=== PATIENT | female | born 1960 | race Caucasian/White ===

== ENCOUNTER 2019-04-03 23:10 | Inpatient (IN) | payer MEDICARE, OTHER ==
[~2019-04-03] VITALS: Ht 172.7 cm; Wt 49.1 kg
[2019-04-03] MEDS ORDERED: SOD CHLORIDE 0.9% 500 ML IV STA (23:55)
[2019-04-04] MEDS ORDERED: ACETAMINOPHEN 325 MG TAB PO PRN ×2 (02:30→05:30)
[2019-04-04] MEDS ORDERED: ONDANSETRON 4 MG INJ IV PRN ×3 (02:30→13:00)
[2019-04-04] MEDS ORDERED: SOD CHLORIDE 0.9% 100 ML ONE (03:14)
[2019-04-04] MEDS ORDERED: IOHEXOL 300MG/ML 150 ML BTL ONE (03:14)
[2019-04-04] MEDS ORDERED: KETOROLAC 15 MG INJ IV STA (03:20)
[2019-04-04] MEDS ORDERED: CEFTRIAXONE 1 GM/50 ML (PMX) 50 ML IVPB ONE (03:30)
--- NOTE | 2019-04-04 03:52 | ERD ---
ER Documentation Chief Complaint Chief Complaint RIGHT FACE PAIN X 2 WEEKS, WORSE TODAY. NO KNOWN FEVERS. HPI This is a 58-year-old female with a past medical history of hypertension, hyperlipidemia, coronary artery disease with a previous AR status post stenting, hypothyroidism, noncompliant on medications due to an inability to obtain them who is presenting with several months of progressive worsening weakness, fatigue, weight loss and feeling generally unwell. The patient was evaluated by her primary care physician approximately 2 weeks ago for hematuria and was diagnosed with a urinary tract infection at this time. Unfortunately, the patient was not able to fill the antibiotic prescription due to an inability to fill her medications. The patient also endorses right-sided facial pain and paresthesias, ongoing over the last several days. She does not endorse any alleviating or exacerbating factors. The patient reports that because of this pain that she has been having, she has had a decreased appetite and has not been eating very well. She feels very weak and fatigued at this time. The patient denies feeling sick recently. The patient denies fever or chills. The patient has had no headache or vision changes. The patient does not endorse neck or back pain. The patient denies lightheadedness or dizziness. The patient has had no chest pain or trouble breathing. The patient denies nausea or vomiting. The patient does endorse suprapubic abdominal pain with persistent hematuria. The patient denies changes to bowel movements. The patient has had no focal deficits. The patient has had no weakness or numbness or tingling to the face or extremities. ROS All systems reviewed and are negative except as per history of present illness. Allergies Allergies: Coded Allergies: Penicillins (Verified Allergy, Unknown, 04/03/19) PMhx/Soc History of Surgery: Yes (stent placemet) Anesthesia Reaction: No Hx Cardiac Disorders: Yes (Hypertension, hyperlipidemia, coronary artery disease with AR 2014 w/ 2 stents placed) Hx Miscellaneous Medical Probl: Yes (hypothyroid, insomnia) Hx Alcohol Use: No Hx Substance Use: No Hx Tobacco Use: No Smoking Status: Unknown if ever smoked FmHx Family History: No diabetes Physical Exam Vitals Vital Signs Date Temp Pulse Resp B/P (MAP) Pulse Ox O2 O2 Flow FiO2 Time Delivery Rate 04/04/19 70 20 123/101 98 Room Air 01:30 (108) 04/03/19 73 24 107/59 100 Room Air 23:30 (75) 04/03/19 97.3 83 20 104/67 98 23:30 (79) Physical Exam Const: No apparent distress, well-developed. Cachectic Head: Normocephalic, Atraumatic Eyes: Normal Conjunctiva. Extraocular movements intact. Pupils equal, round and reactive to light ENT: Normal External Ears, Nose. Dry mucous membranes. Normal oropharynx. Unremarkable dentition. Right tympanic membrane normal. Neck: Full range of motion. No meningismus. Resp: Clear to auscultation bilaterally, No wheezes, rales or rhonchi Cardio: Regular rate and rhythm. No murmurs, rubs or gallops Abd: Cachectic. Soft, non tender, non distended. Normal bowel sounds Skin: No petechiae or rashes Back: No midline tenderness. No CVA tenderness. Multiple moles present. Ext: No cyanosis, or edema Neur: Awake and alert, oriented 4. Cranial nerves intact. No facial droop. Normal strength, sensation and coordination. Psych: Normal Mood and Affect Result Diagram: 04/04/19 0013 04/04/19 0013 Results 24 hrs Laboratory Tests Test 04/04/19 00:00 04/04/19 00:13 04/04/19 00:15 Bedside Urine pH (LAB) 5.5 Bedside Urine Protein (LAB) 1+ Bedside Urine Glucose (UA) Negative Bedside Urine Ketones (LAB) 1+ Bedside Urine Blood Trace-intact Bedside Urine Nitrite (LAB) Positive Bedside Urine Leukocyte Esterase Negative (L White Blood Count 13.2 10^3/ul Red Blood Count 4.41 10^6/ul Hemoglobin 11.4 g/dl Hematocrit 35.6 % Mean Corpuscular Volume 80.7 fl Mean Corpuscular Hemoglobin 25.9 pg Mean Corpuscular 32.0 g/dl Hemoglobin Concent Red Cell Distribution Width 15.7 % Platelet Count 508 10^3/UL Mean Platelet Volume 9.2 fl Immature Granulocytes % 0.800 % Neutrophils % 78.4 % Lymphocytes % 12.4 % Monocytes % 6.9 % Eosinophils % 0.8 % Basophils % 0.7 % Nucleated Red Blood Cells % 0.0 /100WBC Immature Granulocytes # 0.100 10^3/ul Neutrophils # 10.4 10^3/ul Lymphocytes # 1.6 10^3/ul Monocytes # 0.9 10^3/ul Eosinophils # 0.1 10^3/ul Basophils # 0.1 10^3/ul Nucleated Red Blood Cells # 0.0 10^3/ul Prothrombin Time 12.9 Sec Prothrombin Time Ratio 1.0 INR International Normalized Ratio 0.96 Sodium Level 137 mmol/L Potassium Level 3.5 mmol/L Chloride Level 103 mmol/L Carbon Dioxide Level 25 mmol/L Anion Gap 9 Blood Urea Nitrogen 28 mg/dl Creatinine 1.18 mg/dl Est Glomerular Filtrat Rate mL/min 47 mL/min Glucose Level 111 mg/dl Calcium Level 9.8 mg/dl Troponin I < 0.012 ng/ml B-Type Natriuretic Peptide 366 PG/ML Thyroid Stimulating Hormone (TSH) 16.400 MIU/L Free Thyroxine 2.19 ng/dl Bedside Glucose 110 mg/dL Current Medications Medications Dose Sig/Juan Daniel Start Time Status Last (Trade) Ordered Route PRN Stop Time Admin Dose Reason Admin Sodium 500 ml @ Q1H STAT 04/03/19 DC 04/04/19 Chloride 500 mls/hr IV 23:55 00:41 04/04/19 00:54 Ondansetron 4 mg BRIDGE ORDER 04/04/19 HCl (Zofran PRN IV 02:30 Inj) NAUSEA/VOMITI 04/05/19 02:29 NG 650 mg ER BRIDGE 04/04/19 Acetaminophen PRN PO 02:30 (Tylenol .MILD PAIN 04/05/19 02:29 Tab) 1-3 OR TEMP Sodium 100 ml @ ud STK-MED 04/04/19 DC Chloride ONCE .ROUTE 03:14 04/04/19 03:15 Iohexol 150 ml STK-MED 04/04/19 DC (Omnipaque ONCE .ROUTE 03:14 300mg/ ml) 04/04/19 03:15 Ceftriaxone 50 ml @ ONCE ONCE 04/04/19 04/04/19 Sodium 100 mls/hr IVPB 03:30 03:25 04/04/19 03:59 Ketorolac 15 mg ONCE STAT 04/04/19 DC 04/04/19 Tromethamine IV 03:20 03:25 (Toradol) 04/04/19 03:22 Procedures/MDM MDM The patient's presentation warrants further investigation. Previous medical records, if available, were reviewed. LABS The patient's laboratory testing was obtained and reviewed. No emergent treatment was required unless described below. CBC: Leukocytosis with shift, potentially related to an infection. Thrombocytosis, likely reactive. Normocytic anemia, not emergent. Chemistry: No E/o severe acidosis or alkalosis or liver disease or diabetic ketoacidosis. Elevated BUN and creatinine, concerning for possible dehydration and acute kidney injury. PT/INR: No E/o significant coagulopathy Troponin: No E/o acute ischemia BNP: Indeterminate, low clinical suspicion for a heart failure exacerbation. Urine: E/o acute infection with hematuria TFTs: Hypothyroidism EKG EKG read by me: Rate/Rhythm: Regular rate and rhythm at a rate of 71 bpm Intervals: Normal [place]: Normal Impression: No evidence of acute ischemia or arrhythmia IMAGING Imaging and Radiology interpretation reviewed. CXR FINDINGS: A 3.5 cm nodular lesion projects at the base of the left lung. An adjacent 10 mm opacity may represent a satellite nodule or nipple shadow. There is linear atelectasis or scarring in the right lung base. No evidence of an effusion or pneumothorax. Cardiac silhouette and mediastinal contours are unremarkable. Regional bones appear intact. IMPRESSION: 1. Nodular 3.5 cm opacity projecting within left lung base raises suspicion for primary neoplasm versus metastatic disease. No previous exams available for comparison. If not previously evaluated, further characterization with CT is recommended. 2. Linear atelectasis or scarring in the right lung base. Results called to Dr. Dowd at 2:45 am on 04/04/2019. Electronically viewed and signed by Physician Trent on 04/04/2019 02: 48 CT Head FINDINGS: Brain: There is appropriate cerebral and cerebellar volume. No evidence of intracranial hemorrhage, mass effect or extra-axial fluid collections. There is nonspecific left frontal white matter hypodensity measuring less than 10 mm. Phelps-white distinction is well preserved throughout the exam. Skull base: The bony sella, pituitary gland and infundibulum unremarkable. Posterior fossa and cerebellum unremarkable. Visualized portions of the external auditory canals and tympanic cavity are within normal limits. Ventricles: Appropriate size and position Bones/Scalp: Unremarkable scalp. No evidence of skull fracture Sinuses: Well pneumatized. No acute sinusitis. Mastoid air cells: There is partial opacification, and sclerosis of the right mastoid. IMPRESSION: Nonspecific left frontal white matter hypodensity, likely chronic ischemic change. Right mastoid effusion. Electronically viewed and signed by Destiny Suggs, Physician on 04/04/2019 02:50 TREATMENT/DISPOSITION The patient presents for multiple complaints. Multiple pathologies were d iscovered. The patient is hypothyroid. The patient's TSH is significantly elevated, though the free T4 is within normal limits. That said, this could be contributing to her symptoms today. The patient will require reinitiation of her thyroid medications. The patient also appears to have a left lower lobe nodular opacity that is concerning for a possible primary neoplasm versus metastatic disease. A CT was recommended by the radiologist. This was ordered and will be followed up on by the admitting service. This could help to explain her generalized weakness, fatigue and significant weight loss over the last several months. The patient does also have evidence of a urinary tract infection. The patient does have a mild leukocytosis, but her vital signs are unremarkable. The patient does not meet criteria for systemic inflammatory response. The patient is not septic and I do not feel the patient requires a full septic work-up. The patient was given a dose of Rocephin in the emergency department. The patient is not clinically orthostatic. The patient is not dizzy. I have decr eased suspicion for vertigo. The patient has no signs of emergent or symptomatic anemia. The patient does not have any emergent electrolyte or metabolic emergencies. The patient's EKG and troponin are reassuring. I have low suspicion for acute coronary syndrome. I do not see evidence of any emergent cardiac arrhythmia, which includes but is not limited to heart block, Brugada syndrome or WPW. The patient has no heart murmurs or rales. I do not see evidence of an acute CHF exacerbation. The patient may have chronic CHF given her history, which is why she has a mildly elevated BNP in an indeterminate range.. The patient does not endorse any chest or pleuritic pain. The history is negative for bleeding or clotting disorders. The patient has not been involved in any recent prolonged trips or surgeries or hospitalizations. The patient has no calf tenderness or swelling. I have decreased suspicion for PE as the etiology of symptoms. The patient has no focal deficits. The neurologic exam is reassuring. I have decreased suspicion for cerebral ischemia. There was no trauma or injury. There is no personal or family history of cerebral aneurysm. I have decreased suspicion for SAH or other ICH. I have low suspicion for temporal arteritis, cavernous venous thrombosis, subdural hematoma, epidural hematoma, meningitis. The patient does also report right-sided facial pain. There is no facial droop. As stated above, I do not suspect cerebral ischemia or intracranial hemorrhage. I do not suspect a central neurologic pathology. I do not see evidence of Carl's palsy. The patient does not have symptoms concerning for herpes zoster or trigeminal neuralgia. I do not see any evidence of cellulitis or other soft tissue infection. I do not see evidence of a dental infection. I do not see evidence of otitis media. I do not see evidence of emergent pathology, this may be evaluated further in the hospital. ADMISSION At this time, I feel that the patient requires admission for further evaluation and management. The patient will be admitted to panel in accordance with the patient's insurance. The patient was accepted by Dr. Mathew at 2:19 AM on April 04, 2019. Disclaimer: Inadvertent spelling and grammatical errors are likely due to EHR/dictation software use and do not reflect on the overall quality of patient care. Note that the electronic time recorded on this note does not necessarily reflect the actual time of the patient encounter. Departure Diagnosis: Primary Impression: Generalized weakness Additional Impressions: Hypothyroidism Hypothyroidism type: unspecified Qualified Codes: E03.9 - Hypothyroidism, unspecified Urinary tract infection Urinary tract infection type: acute cystitis Hematuria presence: with hematuria Qualified Codes: N30.01 - Acute cystitis with hematuria Left lower lobe pulmonary nodule Leukocytosis Leukocytosis type: unspecified Qualified Codes: D72.829 - Elevated white blood cell count, unspecified Normocytic anemia Thrombocytosis Dehydration Acute kidney injury Elevated TSH Elevated brain natriuretic peptide (BNP) level Right facial pain Condition: Serious ARIA DOWD MD April 04, 2019 03:47
[2019-04-04 04:08] VITALS: Ht 172.7 cm; Wt 49.1 kg
[2019-04-04 04:28] VITALS: BP 122/69; PULSE 80; RESP 18
[2019-04-04] MEDS ORDERED: ALBUTEROL/IPRATROPIUM (NEB) 3 ML AMP HHN PRN (05:30)
[2019-04-04] MEDS ORDERED: NACL 0.9% 3 ML SYG IV SCH (05:30)
[2019-04-04] MEDS ORDERED: AMPICILLIN/SULB 3 GM/NS (PMX) 100 ML IVPB SCH (06:00)
--- NOTE | 2019-04-04 06:53 | HP ---
Date/Time of Note Date/Time of Note DATE: 04/04/19 TIME: 06:45 Assessment/Plan VTE Prophylaxis Risk score (from Ns)>0 risk: 1 SCD applied (from Ns): Yes Pharmacological prophylaxis: heparin Lines/Catheters IV [facility]ter [facility]from [facility] [place] Assessment/Plan Assessment/Plan 1. Lung nodule, concerning for malignancy: Patient reported weight loss and general weakness -CT chest, abdomen and pelvis -Pulmonary and oncology consult 2. Right facial numbness/pain: No focal upper or lower extremity weakness, no slurred speech. She mentioned about possible facial droop few days ago, but not sure -Head CT negative for acute intracranial findings except right mastoid effusion -MRI of the brain 3. Right mastoid effusion: IV antibiotic -ENT consult per clinical course 4. Subclinical hypothyroidism: Patient actually with a history of hypothyroidism and noncompliant with meds -Start Synthroid -Endocrine consult 5. History of CAD with stent: Patient noncompliant with meds -No aspirin for now given possible biopsy of the lung mass 6. History of dyslipidemia: Check fasting lipid panel Result Diagram: 04/04/19 0013 04/04/19 0013 Results 24hrs Laboratory Tests Test 04/04/19 00:00 04/04/19 00:13 04/04/19 00:15 Bedside Urine pH (LAB) 5.5 Bedside Urine Protein (LAB) 1+ H Bedside Urine Glucose (UA) Negative Bedside Urine Ketones (LAB) 1+ H Bedside Urine Blood Trace-intact H Bedside Urine Nitrite (LAB) Positive H Bedside Urine Leukocyte Esterase Negative (L White Blood Count 13.2 H Red Blood Count 4.41 Hemoglobin 11.4 L Hematocrit 35.6 L Mean Corpuscular Volume 80.7 L Mean Corpuscular Hemoglobin 25.9 L Mean Corpuscular 32.0 Hemoglobin Concent Red Cell Distribution Width 15.7 H Platelet Count 508 H Mean Platelet Volume 9.2 Immature Granulocytes % 0.800 H Neutrophils % 78.4 H Lymphocytes % 12.4 L Monocytes % 6.9 Eosinophils % 0.8 Basophils % 0.7 Nucleated Red Blood Cells % 0.0 Immature Granulocytes # 0.100 H Neutrophils # 10.4 H Lymphocytes # 1.6 Monocytes # 0.9 Eosinophils # 0.1 Basophils # 0.1 Nucleated Red Blood Cells # 0.0 Prothrombin Time 12.9 Prothrombin Time Ratio 1.0 INR International 0.96 Normalized Ratio Sodium Level 137 Potassium Level 3.5 Chloride Level 103 Carbon Dioxide Level 25 Anion Gap 9 Blood Urea Nitrogen 28 H Creatinine 1.18 H Est Glomerular Filtrat 47 L Rate mL/min Glucose Level 111 Calcium Level 9.8 Troponin I < 0.012 B-Type Natriuretic Peptide 366 H Thyroid Stimulating Hormone (TSH) 16.400 H Free Thyroxine 2.19 Bedside Glucose 110 HPI/ROS Admit Date/Time Admit Date/Time April 04, 2019 at 02:21 Hx of Present Illness This is a 58-year-old female with a history of hypertension, hypothyroidism, anxiety, dyslipidemia, CAD with stent, noncompliance. Patient presented to ER complaining of right facial pain and tingling x1 week as well as weight loss and generalized weakness and shortness of breath of several months duration. Patient also had hematuria 2 weeks ago and was diagnosed with a UTI by her PCP. Denied chest pain. Patient has not been taking any of her medications for over a month, per patient due to insurance reason. Chest x-ray shows the following 1. Nodular 3.5 cm opacity projecting within left lung base raises suspicion for primary neoplasm versus metastatic disease. No previous exams available for comparison. If not previously evaluated, further characterization with CT is recommended. 2. Linear atelectasis or scarring in the right lung base. Head CT showed right mastoid effusion and nonspecific left frontal white matter hypodensity, likely chronic ischemic change. PMH/Family/Social Past Medical History Medical History: other (See HPI) Coded Allergies: Penicillins (Verified Allergy, Unknown, rash, 09/06/17) Past Surgical History Past Surgical Hx: other (See HPI) Family History Significant Family History: no pertinent family hx Social History Alcohol Use: none Smoking Status: Never smoker Drug Use: none Exam Constitutional: other (No acute distress) Head: normocephalic Eyes: PERRL Respiratory: normal air movement Cardiovascular: regular rate and rhythm Gastrointestinal: soft Extremities: edema Medications Current Medications IV Flush (NS 3 ml) 3 ml PER PROTOCOL IV ; Start 04/04/19 at 05:30 Ondansetron HCl (Zofran Inj) 4 mg Q6H PRN IV NAUSEA/VOMITING; Start 04/04/19 at 05:30 Acetaminophen (Tylenol Tab) 650 mg Q6H PRN PO .PAIN 1-3 OR TEMP; Start 04/04/19 at 05:30 Heparin Sodium (Porcine) (Heparin (5000 Units/1ml)) 5,000 unit Q12 SC ; Start 04/04/19 at 09:00 Albuterol/ Ipratropium (Duoneb) 3 ml Q2H RESP THERAPY PRN HHN SHORTNESS OF BREATH; Start 04/04/19 at 05:30 Ampicillin Sodium/ Sulbactam Sodium 100 ml @ 100 mls/hr Q6 IVPB ; Start 04/04/19 at 06:00; Status UNV Coded Allergies: Penicillins (Verified Allergy, Unknown, 04/03/19) Social History Smoking Status: Unknown if ever smoked Exam/Review of Systems Vital Signs Vitals Vital Signs Date Temp Pulse Resp B/P (MAP) Pulse Ox O2 O2 Flow FiO2 Time Delivery Rate 04/04/19 97.7 80 18 122/69 100 04:28 (86) 04/04/19 Room Air 03:30 Intake and Output 04/03/19 04/03/19 04/04/19 1515:00 23:00 07:00 IntakeIntake Total 550 ml BalanceBalance 550 ml MERLE MENDOZA MD April 04, 2019 06:53
[2019-04-04 07:36] VITALS: BP 164/70; PULSE 68; RESP 16
[2019-04-04] MEDS: LEVOTHYROXINE 50 MCG TAB PO SCH (08:41)
[2019-04-04] MEDS: LEVOFLOXACIN 500MG/D5W (PMX) 100 ML IVPB SCH (08:41)
[2019-04-04] MEDS: HEPARIN 5,000 UNIT/1 ML VIAL SC SCH ×2 (08:45→21:00)
[2019-04-04 10:44] VITALS: BP 152/67; PULSE 66
[2019-04-04] MEDS ORDERED: morphine 2 MG INJ IV STA (11:59)
[2019-04-04] MEDS ORDERED: METOCLOPRAMIDE 10 MG INJ IV ONE (12:00)
--- NOTE | 2019-04-04 13:00 | EN ---
Date/Time of Note Date/Time of Note DATE: 04/04/19 TIME: 12:59 Event Note Medicine Medicine Event Note 58-year-old female who was admitted earlier today because of numbness and pain on the right side of her face. She does have past medical history of hypertension, dyslipidemia, coronary artery disease with previous SD status post PCI, hypothyroidism and has been noncompliant with her medications. Patient also reported recent diagnosis of a urinary tract infection but never got treated. Because she never picked up her medications. She was admitted for the followin. Lung nodule concerning for malignancy 2. Headaches with right-sided facial numbness and pain 3. Right mastoid effusion 4. Hypothyroidism with suboptimal control due to medication noncompliance 5. History of coronary disease status post PCI with noncompliance 6. History of dyslipidemia 7. Hypertension currently with fair control 8. Hypochromic anemia rule out iron deficiency 9. Acute renal insufficiency rule out chronic kidney disease Plan: -CT shows multiple bilateral lung nodules with a dominant mass in the left lower lobe all concerning for metastasis. Will order marrow biopsy as well as pulmonology and oncology consultations -Follow-up MRI of the brain imaging to rule out brain metastasis contributing to his symptoms -CT of the abdomen and pelvis also ordered to further evaluate nodules -Provide supportive care and pain control -Further interventions per clinical course. JAYLON CASTELAN April 04, 2019 13:00
[2019-04-04 15:23] VITALS: BP 113/56; PULSE 73; RESP 14
[2019-04-04 20:00] VITALS: BP 140/72; PULSE 66; RESP 17
[2019-04-04] MEDS: traZODone 50 MG TAB PO SCH (22:24)
[2019-04-05 02:00] VITALS: BP 132/67; PULSE 60; RESP 18
[2019-04-05] MEDS: LEVOTHYROXINE 50 MCG TAB PO SCH (06:08)
[2019-04-05 07:56] VITALS: BP 133/67; PULSE 92; RESP 16
[2019-04-05] MEDS: LEVOFLOXACIN 500MG/D5W (PMX) 100 ML IVPB SCH (08:48)
[2019-04-05] MEDS: morphine 2 MG INJ IV PRN ×3 (09:55→21:29)
--- NOTE | 2019-04-05 10:53 | CONS ---
Assessment/Plan Assessment/Plan Assessment/Plan (Daily) CT chest was reviewed which is showing large mass in the left lower lobe with a small mass in the right lower lobe as well. Liver imaging shows multiple lesions which are consistent with primary malignancy of liver with likely metastatic disease to lungs. There are also groundglass changes in the lung parenchyma bilaterally. Assessment recommendations; 1. Patient admitted with what appears to be advanced malignancy with hepatic and [place] involvement with right facial numbness possibly indicative of cerebral malignant involvement. Continue current supportive care. Patient scheduled for MRI of the brain. The safest way to diagnose would be to perform liver biopsy. Consultation Date/Type/Reason Admit Date/Time April 04, 2019 at 02:21 Date of Consultation: April 05, 2019 Type of Consult Pulmonary Patient is a 58-year-old lady who came into the hospital with right facial numbness. Upon evaluation CT of the head was done which is essentially unremarkable. However x-ray showing left lower lobe lung mass confirmed by CT imaging of the chest showing bilateral pulmonary masses with extensive hepatic lesions which are consistent with malignancy. Patient also been reporting weight loss over the last few weeks. Past medical history; 1. History of pulmonary hypertension 2. CAD status post PTCA in the past. 3. History of hypothyroidism. 4. Possibly COPD. Medications; reviewed. Allergies; penicillin. Social history; prior history of smoking. Family history; noncontributory. Occupational history; noncontributory. Review of systems; denies any headache, seizures. Any visual changes. Denies any dysphagia, chest pain, complains of scant cough without any hemoptysis. Denies any wheezing. Denies any abdominal pain, nausea vomiting melena or hematochezia. Patient did have recent episode of UTI. Complains of weight loss. Denies any skin lesions or any joint symptoms. General exam; elderly woman, awake alert, currently no distress. Date/Time of Note DATE: 04/05/19 TIME: 10:49 Past Medical History Medications Current Medications IV Flush (NS 3 ml) 3 ml PER PROTOCOL IV ; Start 04/04/19 at 05:30 Acetaminophen (Tylenol Tab) 650 mg Q6H PRN PO .PAIN 1-3 OR TEMP Last administered on 04/04/19at 10:24; Admin Dose 650 MG; Start 04/04/19 at 05:30 Heparin Sodium (Porcine) (Heparin (5000 Units/1ml)) 5,000 unit Q12 SC Last administered on 04/04/19at 08:45; Admin Dose 5,000 UNIT; Start 04/04/19 at 09:00 Albuterol/ Ipratropium (Duoneb) 3 ml Q2H RESP THERAPY PRN HHN SHORTNESS OF BREATH; Start 04/04/19 at 05:30 Levothyroxine Sodium (Synthroid) 50 mcg DAILY@06 PO Last administered on 04/05/19at 06:08; Admin Dose 50 MCG; Start 04/04/19 at 08:30 Levofloxacin/ Dextrose 100 ml @ 100 mls/hr Q24H IVPB Last administered on 04/05/19 08:48; Admin Dose 100 MLS/HR; Start 04/04/19 at 08:30 Morphine Sulfate (morphine) 2 mg Q4H PRN IV SEVERE PAIN LEVEL 7-10 Last administered on 04/05/19 09:55; Admin Dose 2 MG; Start 04/04/19 at 13:00 Ondansetron HCl (Zofran Inj) 4 mg Q6H PRN IV NAUSEA AND/OR VOMITING; Start 04/04/19 at 13:00 Trazodone HCl (Desyrel) 25 mg HS PO Last administered on 04/04/19at 22:24; Admin Dose 25 MG; Start 04/04/19 at 22:30 Allergies: Coded Allergies: Penicillins (Verified Allergy, Unknown, 04/03/19) Social History Smoking Status: Unknown if ever smoked Exam/Review of Systems Exam Vitals Vital Signs Date Temp Pulse Resp B/P (MAP) Pulse Ox O2 O2 Flow FiO2 Time Delivery Rate 04/05/19 98.7 92 16 133/67 99 07:56 (89) 04/04/19 Room Air 03:30 Intake and Output 04/04/19 04/04/19 04/05/19 1515:00 23:00 07:00 IntakeIntake Total 1020 ml 840 ml OutputOutput Total 350 ml 450 ml 900 ml BalanceBalance 670 ml 390 ml -900 ml Exam H EENT exam; supple neck, no JVD. No lymphadenopathy. Midline trachea. No thyromegaly. No neck masses. Chest exam; clear to auscultation. S1-S2 audible, no murmurs. Regular rhythm. Abdomen exam; soft, nontender. No organomegaly. Bowel sounds audible. Extremity exam; no peripheral edema or clubbing. R[employer] exam; no focal motor deficit. Results Result Diagram: 04/05/19 0454 04/05/19 0454 Results 24hrs Laboratory Tests Test 04/05/19 04:51 04/05/19 04:54 Carcinoembryonic Antigen 346.0 H White Blood Count 10.7 Red Blood Count 4.18 L Hemoglobin 10.9 L Hematocrit 34.3 L Mean Corpuscular Volume 82.1 Mean Corpuscular Hemoglobin 26.1 L Mean Corpuscular Hemoglobin Concent 31.8 L Red Cell Distribution Width 16.1 H Platelet Count 422 H Mean Platelet Volume 9.7 Immature Granulocytes % 0.700 H Neutrophils % 73.8 Lymphocytes % 14.9 L Monocytes % 8.2 Eosinophils % 1.7 Basophils % 0.7 Nucleated Red Blood Cells % 0.0 Immature Granulocytes # 0.080 H Neutrophils # 7.9 H Lymphocytes # 1.6 Monocytes # 0.9 Eosinophils # 0.2 Basophils # 0.1 Nucleated Red Blood Cells # 0.0 Prothrombin Time 13.3 Prothrombin Time Ratio 1.0 INR International Normalized Ratio 1.00 Activated Partial Thromboplast Time 38.5 H Sodium Level 137 Potassium Level 3.9 Chloride Level 105 Carbon Dioxide Level 27 Anion Gap 5 Blood Urea Nitrogen 14 # Creatinine 0.77 Est Glomerular Filtrat Rate mL/min > 60 Glucose Level 101 Hemoglobin A1c 5.4 Calcium Level 9.0 Phosphorus Level 3.0 Magnesium Level 2.0 Total Bilirubin 0.2 Direct Bilirubin 0.00 Indirect Bilirubin 0.2 Aspartate Amino Transf (AST/SGOT) 55 H Alanine Aminotransferase (ALT/SGPT) 14 Alkaline Phosphatase 217 H Total Protein 6.3 Albumin 3.4 Globulin 2.90 Albumin/Globulin Ratio 1.17 Triglycerides Level 178 H Cholesterol Level 188 LDL Cholesterol, Calculated 104 HDL Cholesterol 48 Cholesterol/HDL Ratio 3.9 Medications Medication Current Medications IV Flush (NS 3 ml) 3 ml PER PROTOCOL IV ; Start 04/04/19 at 05:30 Acetaminophen (Tylenol Tab) 650 mg Q6H PRN PO .PAIN 1-3 OR TEMP Last administered on 04/04/19at 10:24; Admin Dose 650 MG; Start 04/04/19 at 05:30 Heparin Sodium (Porcine) (Heparin (5000 Units/1ml)) 5,000 unit Q12 SC Last administered on 04/04/19 08:45; Admin Dose 5,000 UNIT; Start 04/04/19 at 09:00 Albuterol/ Ipratropium (Duoneb) 3 ml Q2H RESP THERAPY PRN HHN SHORTNESS OF BREATH; Start 04/04/19 at 05:30 Levothyroxine Sodium (Synthroid) 50 mcg DAILY@06 PO Last administered on 04/05/19 06:08; Admin Dose 50 MCG; Start 04/04/19 at 08:30 Levofloxacin/ Dextrose 100 ml @ 100 mls/hr Q24H IVPB Last administered on 04/05/19 08:48; Admin Dose 100 MLS/HR; Start 04/04/19 at 08:30 Morphine Sulfate (morphine) 2 mg Q4H PRN IV SEVERE PAIN LEVEL 7-10 Last administered on 04/05/19at 09:55; Admin Dose 2 MG; Start 04/04/19 at 13:00 Ondansetron HCl (Zofran Inj) 4 mg Q6H PRN IV NAUSEA AND/OR VOMITING; Start 04/04/19 at 13:00 Trazodone HCl (Desyrel) 25 mg HS PO Last administered on 04/04/19at 22:24; Admin Dose 25 MG; Start 04/04/19 at 22:30 DONATO PAEZ April 05, 2019 10:53
[2019-04-05] MEDS: HEPARIN 5,000 UNIT/1 ML VIAL SC SCH (12:58)
--- NOTE | 2019-04-05 14:35 | DS ---
Date/Time of Note Date/Time of Note DATE: 04/05/19 TIME: 14:26 Discharge Summary Admission/Discharge Info Admit Date/Time April 04, 2019 at 02:21 Discharge Date/Time Discharge Diagnosis 58-year-old female with multiple comorbidities and off medications for a while who presented with right-sided facial numbness and headaches admitted and managed for the followin. Headaches with right-sided facial numbness and pain concerning for cerebral malignant disease 2. CT concern for extensive metastases metastatic possible rectal cancer. Nodules concerning for metastasis noted in the lungs bilaterally, and the liver and concerning mass noted in the rectum concerning for possible primary rectal cancer. 3. Right mastoid effusion 4. Hypothyroidism with suboptimal control due to medication noncompliance 5. History of coronary disease status post PCI with noncompliance 6. History of dyslipidemia 7. Hypertension currently with fair control 8. Hypochromic anemia rule out iron deficiency 9. Acute renal insufficiency rule out chronic kidney disease: resolved . Patient Condition: Stable Consults Pulmonary: Barber Barrientos MD Oncology: Annie Vazquez MD . Procedures See hospital course . Hospital Course Transfer summary 58-year-old female with a past medical history of hypertension, hypothyroidism, anxiety, dyslipidemia, coronary artery disease status post stent placement and noncompliance to therapy who had presented to the emergency room complaining of right-sided facial pain and tingling for the last 1 week with weight loss, generalized weakness, headaches and shortness of breath. Per the patient she had recently had a hematuria 2 weeks ago was diagnosed with a UTI by her primary care doctor. For insurance reasons, the patient has been off any kind of medication for over a month. A chest x-ray that was done in the emergency room was concerning for a nodule at 3.5 cm opacity from the left lung base that was consented for primary neoplasm versus metastatic disease based on this, a CT scan of the chest was ordered but prior to that she underwent a CT scan of the brain that showed nonspecific left frontal white matter hypodensity likely chronic ischemic changes and right mastoid effusion. Chest CT that was ordered without contrast also of the abdomen and pelvis showed concern for primary rectal carcinoma with lung and liver metastasis. The left lower lobe dominant lung mass as well as several liver masses are amenable to CT-guided biopsy if indicated. She also had a CT of the chest with intravenous contrast that did show same dominant mass in the left lower lobe lobe which I suspect suspicious of metastatic lesions as well as partially imaged extensive hepatic metastatic disease. Patient also has a known history of hypothyroidism but has been noncompliant with her medication and she underwent a screening thyroid ultrasound that also came back showing asymmetrically enlarged right thyroid lobe with multiple ill- defined thyroid nodules likely representing a unilateral goiter. Per the radiologist none of the nodules meet ultrasound criteria for biopsy. She was resumed on low-dose Synthroid and has been tolerating this therapy. Screening labs including carcinoembryonic antigen was elevated at 346, her TSH was elevated at 16 and a urine was highly suspicious of a urinary tract infection and also positive for yeast as well. At this time the patient has been seen by both oncology as well as pulmonology. patient's original presenting complaint was right facial numbness and this is concerning for possible cerebral malignant involvement. At this time brain MRI has been taken by report is pending. As patient is a [facility] member, it may be better off if her further work-up is done at that location. The patient needs possible neurology as well as gastroenterology intervention at this time as well. She does complain of intermittent constipation alternating with diarrhea. She has been requiring the use of stool softeners on and off. At this time the insurance case manager will attempt to reach [facility] and initiate [facility]. If patient is transferred for further care will be taken over by them. If not, we will go ahead and get gastroenterology consultation at this time a follow-up MRI of the brain. Further intervention per clinical course. Primary Care Provider Care Physician No Primary Time spent on discharge: > 30 minutes Pending Labs Laboratory Tests Test 04/05/19 04:51 04/05/19 04:54 Carcinoembryonic Antigen 346.0 ng/ml (0.0-5.0) White Blood Count 10.7 10^3/ul (4.8-10.8) Red Blood Count 4.18 10^6/ul (4.20-5.40) Hemoglobin 10.9 g/dl (12.0-16.0) Hematocrit 34.3 % (37.0-47.0) Mean Corpuscular Volume 82.1 fl (82.0-101.0) Mean Corpuscular Hemoglobin 26.1 pg (29.0-33.0) Mean Corpuscular 31.8 g/dl (32.0-37.0) Hemoglobin Concent Red Cell Distribution Width 16.1 % (11.5-14.5) Platelet Count 422 10^3/UL (140-415) Mean Platelet Volume 9.7 fl (7.4-10.4) Immature Granulocytes % 0.700 % (0.001-0.429) Neutrophils % 73.8 % (39.0-77.0) Lymphocytes % 14.9 % (15.0-51.0) Monocytes % 8.2 % (0.0-11.0) Eosinophils % 1.7 % (0.0-7.0) Basophils % 0.7 % (0.0-2.0) Nucleated Red Blood Cells % 0.0 /100WBC (0.0-0.0) Immature Granulocytes # 0.080 10^3/ul (0.0-0.031) Neutrophils # 7.9 10^3/ul (1.6-7.5) Lymphocytes # 1.6 10^3/ul (0.8-2.9) Monocytes # 0.9 10^3/ul (0.3-0.9) Eosinophils # 0.2 10^3/ul (0.0-0.5) Basophils # 0.1 10^3/ul (0.0-0.1) Nucleated Red Blood Cells # 0.0 10^3/ul (0.0-0.0) Prothrombin Time 13.3 Sec (11.9-14.9) Prothrombin Time Ratio 1.0 INR International 1.00 Normalized Ratio Activated Partial Thromboplast 38.5 Sec (23.0-35.0) Time Sodium Level 137 mmol/L (135-144) Potassium Level 3.9 mmol/L (3.5-5.1) Chloride Level 105 mmol/L (97-110) Carbon Dioxide Level 27 mmol/L (21-31) Anion Gap 5 (5-13) Blood Urea Nitrogen 14 mg/dl (7-20) Creatinine 0.77 mg/dl (0.44-1.00) Est Glomerular Filtrat > 60 mL/min (>60) Rate mL/min Glucose Level 101 mg/dl (70-220) Hemoglobin A1c 5.4 % (0-5.9) Calcium Level 9.0 mg/dl (8.4-10.2) Phosphorus Level 3.0 mg/dl (2.5-4.9) Magnesium Level 2.0 mg/dl (1.7-2.5) Total Bilirubin 0.2 mg/dl (0.2-1.3) Direct Bilirubin 0.00 mg/dl (0.00-0.20) Indirect Bilirubin 0.2 mg/dl (0-1.1) Aspartate Amino 55 IU/L (15-46) Transf (AST/SGOT) Alanine 14 IU/L (13-69) Aminotransferase (ALT/SGPT) Alkaline Phosphatase 217 IU/L (42-121) Total Protein 6.3 g/dl (6.1-8.1) Albumin 3.4 g/dl (3.3-4.9) Globulin 2.90 g/dl (1.3-3.2) Albumin/Globulin Ratio 1.17 Triglycerides Level 178 mg/dl (0-149) Cholesterol Level 188 mg/dl (100-200) LDL Cholesterol, Calculated 104 mg/dl HDL Cholesterol 48 mg/dl (35-98) Cholesterol/HDL Ratio 3.9 RATIO JAYLON CASTELAN April 05, 2019 14:35
[2019-04-05 14:50] VITALS: BP 106/65; PULSE 98; RESP 16
--- NOTE | 2019-04-05 15:32 | CONS ---
Assessment/Plan Assessment/Plan Hospital Course 58 yo F with multiple comorbidities who presents for evaluation of weight loss, malaise, and other sx. CT C/A/P was notable for lung and liver nodules, likely metastatic lesions. She additionally was noted to have c/o headache and R facial tingling... for which neurology is consulted. MRI brain confirmed a mass centered in the right posterior pterygopalatine fossa concerning for metastasis. P: Oncology follow up Seizure precautions Pain and other medical management per primary Will follow clinically Consultation Date/Type/Reason Admit Date/Time April 04, 2019 at 02:21 Type of Consult Neurology Reason for Consultation headache, R facial paresthesias Requesting Provider: JAYLON CASTELAN Date/Time of Note DATE: 04/05/19 TIME: 15:32 Hx of Present Illness 58 yo F with hx of [place] s/p multiple stent placement, hypothyroidism and other comorbidities who presented to the ED with c/o weight loss and generalized weakness x 1 1/2 mo, and headache with R facial tingling x 1 week. History was obtained from pt and chart review. She currently endorses a headache, 5/10, that is intermittent, throbbing and localized to the R front of her head. She states that it is relieved with morphine. She states that the onset of her headache occurred one week ago when the facial tingling started. The facial tingling is constant. It is additionally elsewhere noted: Hx of Present Illness This is a 58-year-old female with a history of hypertension, hypothyroidism, anxiety, dyslipidemia, CAD with stent, noncompliance. Patient presented to ER complaining of right facial pain and tingling x1 week as well as weight loss and generalized weakness and shortness of breath of several months duration. Patient also had hematuria 2 weeks ago and was diagnosed with a UTI by her PCP. Denied chest pain. Patient has not been taking any of her medications for over a month, per patient due to insurance reason. Chest x-ray shows the following 1. Nodular 3.5 cm opacity projecting within left lung base raises suspicion for primary neoplasm versus metastatic disease. No previous exams available for comparison. If not previously evaluated, further characterization with CT is recommended. 2. Linear atelectasis or scarring in the right lung base. Head CT showed right mastoid effusion and nonspecific left frontal white matter hypodensity, likely chronic ischemic change. negative unless noted otherwise in HPI Exam/Review of Systems Exam Vitals Vital Signs Date Temp Pulse Resp B/P (MAP) Pulse Ox O2 O2 Flow FiO2 Time Delivery Rate 04/05/19 97.5 98 16 106/65 99 14:50 (79) 04/04/19 Room Air 03:30 Intake and Output 04/04/19 04/04/19 04/05/19 1515:00 23:00 07:00 IntakeIntake Total 1020 ml 840 ml OutputOutput Total 350 ml 450 ml 900 ml BalanceBalance 670 ml 390 ml -900 ml Exam PE: Gen Appearance: No Apparent Distress HEENT: Normocephalic Cardiovascular: Regular rate Lungs: Clear bilaterally Abdomen: Soft Extremities: Dry NE: The patient was alert and oriented. Language was normal. Fund of knowledge was normal. Pupils were equal and reactive to light. There was no afferent pupillary defect. Eyes were dysconjugate. Visual simms were normal. Funduscopic examination was limited. Extra-ocular movements were full. Ptosis was absent. There was no nystagmus. Facial sensation was diminished on the R. Face was symmetric with normal strength. Hearing was intact. Palate movements were normal. Neck strength was normal. There was normal tongue bulk and speed of movement. Tone was normal. Muscle bulk was normal. I did not see fasciculations. Arms and legs were strong. Vibration sensation was normal. Temperature and pinprick sensation was normal. Rapid alternating movements were normal. There was no dysmetria. There was no intention tremor. Gait was deferred due to bedrest. Arm and leg reflexes were 2+ and symmetric. Wu's sign was absent. Plantar responses were flexor. Results Result Diagram: 04/05/19 0454 04/05/19 0454 Results 24hrs Laboratory Tests Test 04/05/19 04:51 04/05/19 04:54 Carcinoembryonic Antigen 346.0 H White Blood Count 10.7 Red Blood Count 4.18 L Hemoglobin 10.9 L Hematocrit 34.3 L Mean Corpuscular Volume 82.1 Mean Corpuscular Hemoglobin 26.1 L Mean Corpuscular Hemoglobin Concent 31.8 L Red Cell Distribution Width 16.1 H Platelet Count 422 H Mean Platelet Volume 9.7 Immature Granulocytes % 0.700 H Neutrophils % 73.8 Lymphocytes % 14.9 L Monocytes % 8.2 Eosinophils % 1.7 Basophils % 0.7 Nucleated Red Blood Cells % 0.0 Immature Granulocytes # 0.080 H Neutrophils # 7.9 H Lymphocytes # 1.6 Monocytes # 0.9 Eosinophils # 0.2 Basophils # 0.1 Nucleated Red Blood Cells # 0.0 Prothrombin Time 13.3 Prothrombin Time Ratio 1.0 INR International Normalized Ratio 1.00 Activated Partial Thromboplast Time 38.5 H Sodium Level 137 Potassium Level 3.9 Chloride Level 105 Carbon Dioxide Level 27 Anion Gap 5 Blood Urea Nitrogen 14 # Creatinine 0.77 Est Glomerular Filtrat Rate mL/min > 60 Glucose Level 101 Hemoglobin A1c 5.4 Calcium Level 9.0 Phosphorus Level 3.0 Magnesium Level 2.0 Total Bilirubin 0.2 Direct Bilirubin 0.00 Indirect Bilirubin 0.2 Aspartate Amino Transf (AST/SGOT) 55 H Alanine Aminotransferase (ALT/SGPT) 14 Alkaline Phosphatase 217 H Total Protein 6.3 Albumin 3.4 Globulin 2.90 Albumin/Globulin Ratio 1.17 Triglycerides Level 178 H Cholesterol Level 188 LDL Cholesterol, Calculated 104 HDL Cholesterol 48 Cholesterol/HDL Ratio 3.9 Medications Medication Current Medications IV Flush (NS 3 ml) 3 ml PER PROTOCOL IV ; Start 04/04/19 at 05:30 Acetaminophen (Tylenol Tab) 650 mg Q6H PRN PO .PAIN 1-3 OR TEMP Last administered on 04/04/19at 10:24; Admin Dose 650 MG; Start 04/04/19 at 05:30 Heparin Sodium (Porcine) (Heparin (5000 Units/1ml)) 5,000 unit Q12 SC Last ad ministered on 04/05/19at 12:58; Admin Dose 5,000 UNIT; Start 04/04/19 at 09:00 Albuterol/ Ipratropium (Duoneb) 3 ml Q2H RESP THERAPY PRN HHN SHORTNESS OF BREATH; Start 04/04/19 at 05:30 Levothyroxine Sodium (Synthroid) 50 mcg DAILY@06 PO Last administered on 04/05/19at 06:08; Admin Dose 50 MCG; Start 04/04/19 at 08:30 Levofloxacin/ Dextrose 100 ml @ 100 mls/hr Q24H IVPB Last administered on 04/05at 08:48; Admin Dose 100 MLS/HR; Start 04/04/19 at 08:30 Morphine Sulfate (morphine) 2 mg Q4H PRN IV SEVERE PAIN LEVEL 7-10 Last administered on 04/05/19 09:55; Admin Dose 2 MG; Start 04/04/19 at 13:00 Ondansetron HCl (Zofran Inj) 4 mg Q6H PRN IV NAUSEA AND/OR VOMITING; Start 04/04/19 at 13:00 Trazodone HCl (Desyrel) 25 mg HS PO Last administered on 04/04/19 22:24; Admin Dose 25 MG; Start 04/04/19 at 22:30 Past Medical History reviewed Medications Current Medications IV Flush (NS 3 ml) 3 ml PER PROTOCOL IV ; Start 04/04/19 at 05:30 Acetaminophen (Tylenol Tab) 650 mg Q6H PRN PO .PAIN 1-3 OR TEMP Last administered on 04/04/19 10:24; Admin Dose 650 MG; Start 04/04/19 at 05:30 Heparin Sodium (Porcine) (Heparin (5000 Units/1ml)) 5,000 unit Q12 SC Last administered on 04/05/19 12:58; Admin Dose 5,000 UNIT; Start 04/04/19 at 09:00 Albuterol/ Ipratropium (Duoneb) 3 ml Q2H RESP THERAPY PRN HHN SHORTNESS OF BREATH; Start 04/04/19 at 05:30 Levothyroxine Sodium (Synthroid) 50 mcg DAILY@06 PO Last administered on 04/05 06:08; Admin Dose 50 MCG; Start 04/04/19 at 08:30 Levofloxacin/ Dextrose 100 ml @ 100 mls/hr Q24H IVPB Last administered on 04/05/19 08:48; Admin Dose 100 MLS/HR; Start 04/04/19 at 08:30 Morphine Sulfate (morphine) 2 mg Q4H PRN IV SEVERE PAIN LEVEL 7-10 Last administered on 04/05/19 09:55; Admin Dose 2 MG; Start 04/04/19 at 13:00 Ondansetron HCl (Zofran Inj) 4 mg Q6H PRN IV NAUSEA AND/OR VOMITING; Start 04/04/19 at 13:00 Trazodone HCl (Desyrel) 25 mg HS PO Last administered on 04/04/19 22:24; Admin Dose 25 MG; Start 04/04/19 at 22:30 Allergies: Coded Allergies: Penicillins (Verified Allergy, Unknown, 04/03/19) Past Surgical History reviewed Social History reviewed Smoking Status: Unknown if ever smoked VIELKA STONE NP April 05, 2019 15:32
--- NOTE | 2019-04-05 15:35 | CONS ---
Assessment/Plan Assessment/Plan Hospital Course (Demo Recall) #Multiple bilateral lung nodules. -Ct reveals Dominant mass is in the left lower lobe. These may all represent metastatic lesions or 1 or more synchronous primary lesions with additional metastatic foci. -pt will need this biopsied. She has [facility] insurance so she should be transferred for further workup #AMS -CT Brain unremarkable -pt needs [facility] MRI. This can be done at [facility] #Right mastoid effusion: IV antibiotic -ENT consult per clinical course #hypothyroidism: -on Synthroid # History of CAD with stent: -continue meds per primary team, Consultation Date/Type/Reason Admit Date/Time April 04, 2019 at 02:21 Date of Consultation: April 05, 2019 Type of Consult oncology Reason for Consultation lung mass Requesting Provider: JAYLON CASTELAN Date/Time of Note DATE: 04/05/19 TIME: 15:24 Hx of Present Illness Ms Waller is a 58-year-old female, [facility] patient, with multiple medical problems including hypertension, hypothyroidism, anxiety, dyslipidemia, CAD with stent, noncompliance. -04/04/19 patient presented to the ER with right facial pain and tingling x1 week, 35 lb weight loss over 1 month as well as shortness of breast of several months. -CT Chest revealed 1. Nodular 3.5 cm opacity projecting within left lung base raises suspicion for primary neoplasm versus metastatic disease. -Head CT showed right mastoid effusion and nonspecific left frontal white matter hypodensity, likely chronic ischemic change. We have been consulted for further workup given concern for underlying malignancy Constitutional: diaphoresis, poor po Eyes: no complaints ENT: no complaints Respiratory: no complaints Cardiovascular: no complaints Gastrointestinal: decreased appetite, nausea Genitourinary: no complaints Musculoskeletal: back pain, bone/joint pain Skin: no complaints Endocrine: no complaints Past Medical History hypertension, hypothyroidism, anxiety, dyslipidemia, CAD with stent, Medications Current Medications IV Flush (NS 3 ml) 3 ml PER PROTOCOL IV ; Start 04/04/19 at 05:30 Acetaminophen (Tylenol Tab) 650 mg Q6H PRN PO .PAIN 1-3 OR TEMP Last administered on 04/04/19at 10:24; Admin Dose 650 MG; Start 04/04/19 at 05:30 Heparin Sodium (Porcine) (Heparin (5000 Units/1ml)) 5,000 unit Q12 SC Last administered on 04/05/19at 12:58; Admin Dose 5,000 UNIT; Start 04/04/19 at 09:00 Albuterol/ Ipratropium (Duoneb) 3 ml Q2H RESP THERAPY PRN HHN SHORTNESS OF BREATH; Start 04/04/19 at 05:30 Levothyroxine Sodium (Synthroid) 50 mcg DAILY@06 PO Last administered on 04/05/19at 06:08; Admin Dose 50 MCG; Start 04/04/19 at 08:30 Levofloxacin/ Dextrose 100 ml @ 100 mls/hr Q24H IVPB Last administered on 04/05/19at 08:48; Admin Dose 100 MLS/HR; Start 04/04/19 at 08:30 Morphine Sulfate (morphine) 2 mg Q4H PRN IV SEVERE PAIN LEVEL 7-10 Last administered on 04/05/19at 09:55; Admin Dose 2 MG; Start 04/04/19 at 13:00 Ondansetron HCl (Zofran Inj) 4 mg Q6H PRN IV NAUSEA AND/OR VOMITING; Start 04/04/19 at 13:00 Trazodone HCl (Desyrel) 25 mg HS PO Last administered on 04/04/19at 22:24; Admin Dose 25 MG; Start 04/04/19 at 22:30 Allergies: Coded Allergies: Penicillins (Verified Allergy, Unknown, 04/03/19) Family History Significant Family History: no pertinent family hx Social History Alcohol Use: none Smoking Status: Unknown if ever smoked Drug Use: none Exam/Review of Systems Exam Vitals Vital Signs Date Temp Pulse Resp B/P (MAP) Pulse Ox O2 O2 Flow FiO2 Time Delivery Rate 04/05/19 97.5 98 16 106/65 99 14:50 (79) 04/04/19 Room Air 03:30 Intake and Output 04/04/19 04/04/19 04/05/19 1515:00 23:00 07:00 IntakeIntake Total 1020 ml 840 ml OutputOutput Total 350 ml 450 ml 900 ml BalanceBalance 670 ml 390 ml -900 ml Constitutional: alert, oriented, frail Psych: anxiety, depression Eyes: nl conjunctiva ENMT: nl external ears & nose Neck: supple Respiratory: clear to auscultation Cardiovascular: regular rate and rhythm Gastrointestinal: soft Musculoskeletal: nl extremities to inspection Results Result Diagram: 04/05/19 0454 04/05/19 0454 Results 24hrs Laboratory Tests Test 04/05/19 04:51 04/05/19 04:54 Carcinoembryonic Antigen 346.0 H White Blood Count 10.7 Red Blood Count 4.18 L Hemoglobin 10.9 L Hematocrit 34.3 L Mean Corpuscular Volume 82.1 Mean Corpuscular Hemoglobin 26.1 L Mean Corpuscular Hemoglobin Concent 31.8 L Red Cell Distribution Width 16.1 H Platelet Count 422 H Mean Platelet Volume 9.7 Immature Granulocytes % 0.700 H Neutrophils % 73.8 Lymphocytes % 14.9 L Monocytes % 8.2 Eosinophils % 1.7 Basophils % 0.7 Nucleated Red Blood Cells % 0.0 Immature Granulocytes # 0.080 H Neutrophils # 7.9 H Lymphocytes # 1.6 Monocytes # 0.9 Eosinophils # 0.2 Basophils # 0.1 Nucleated Red Blood Cells # 0.0 Prothrombin Time 13.3 Prothrombin Time Ratio 1.0 INR International Normalized Ratio 1.00 Activated Partial Thromboplast Time 38.5 H Sodium Level 137 Potassium Level 3.9 Chloride Level 105 Carbon Dioxide Level 27 Anion Gap 5 Blood Urea Nitrogen 14 # Creatinine 0.77 Est Glomerular Filtrat Rate mL/min > 60 Glucose Level 101 Hemoglobin A1c 5.4 Calcium Level 9.0 Phosphorus Level 3.0 Magnesium Level 2.0 Total Bilirubin 0.2 Direct Bilirubin 0.00 Indirect Bilirubin 0.2 Aspartate Amino Transf (AST/SGOT) 55 H Alanine Aminotransferase (ALT/SGPT) 14 Alkaline Phosphatase 217 H Total Protein 6.3 Albumin 3.4 Globulin 2.90 Albumin/Globulin Ratio 1.17 Triglycerides Level 178 H Cholesterol Level 188 LDL Cholesterol, Calculated 104 HDL Cholesterol 48 Cholesterol/HDL Ratio 3.9 Medications Medication Current Medications IV Flush (NS 3 ml) 3 ml PER PROTOCOL IV ; Start 04/04/19 at 05:30 Acetaminophen (Tylenol Tab) 650 mg Q6H PRN PO .PAIN 1-3 OR TEMP Last administer ed on 04/04/19at 10:24; Admin Dose 650 MG; Start 04/04/19 at 05:30 Heparin Sodium (Porcine) (Heparin (5000 Units/1ml)) 5,000 unit Q12 SC Last administered on 04/05/19at 12:58; Admin Dose 5,000 UNIT; Start 04/04/19 at 09:00 Albuterol/ Ipratropium (Duoneb) 3 ml Q2H RESP THERAPY PRN HHN SHORTNESS OF B REATH; Start 04/04/19 at 05:30 Levothyroxine Sodium (Synthroid) 50 mcg DAILY@06 PO Last administered on 04/05/19at 06:08; Admin Dose 50 MCG; Start 04/04/19 at 08:30 Levofloxacin/ Dextrose 100 ml @ 100 mls/hr Q24H IVPB Last administered on 04/05/19at 08:48; Admin Dose 100 MLS/HR; Start 04/04/19 at 08:30 Morphine Sulfate (morphine) 2 mg Q4H PRN IV SEVERE PAIN LEVEL 7-10 Last administered on 04/05/19at 09:55; Admin Dose 2 MG; Start 04/04/19 at 13:00 Ondansetron HCl (Zofran Inj) 4 mg Q6H PRN IV NAUSEA AND/OR VOMITING; Start 04/04/19 at 13:00 Trazodone HCl (Desyrel) 25 mg HS PO Last administered on 04/04/19at 22:24; Admin Dose 25 MG; Start 04/04/19 at 22:30 MICHELLE CHRIS M.D. April 05, 2019 15:35
--- NOTE | 2019-04-05 16:28 | CONS ---
Assessment/Plan Assessment/Plan Hospital Course (Demo Recall) Summary Assessment and Plan: Assessment: Metastatic cancer of unclear primary -CT abdomen/pelvis- findings concerning for primary rectal carcinoma -Unintentional weight loss, 35lbs weight loss over 1.5 months -Intermittent Recal bleeding -New onset constipation x3 weeks CAD s/p PCI- 2014, noncompliance History of OR- 2014 Right mastoid effusion Hypothyroidism with suboptimal control due to medication noncompliance History of dyslipidemia Plan: Plan for lung bx tomorrow Will plan for colonoscopy and biopsy Endoscopy - risks/benefits/alternatives/indications of procedure and sedation/anesthesia discussed with patient who states understanding and gives informed consent to proceed. Monitor h/h transfuse as needed Patient seen in collaboration with Dr. Brian CC: FRANCK BRIAN MD ; Consultation Date/Type/Reason Admit Date/Time April 04, 2019 at 02:21 Date of Consultation: April 05, 2019 Type of Consult GI Reason for Consultation Concerns for rectal Ca- colonoscopy with tissue bx Date/Time of Note DATE: 04/05/19 TIME: 15:47 Hx of Present Illness This is a 58 year old female with a PMH of hypertension, hypothyroidism, OR, dyslipidemia, coronary artery disease status post stent placement and noncompliance to therapy who had presented to the emergency room complaining of right-sided facial pain and tingling for the last 1 week with weight loss, generalized weakness, headaches and shortness of breath. Imaging was obtained showing Multiple bilateral lung nodules. Dominant mass is in the left lower l obe. These may all represent metastatic lesions or 1 or more synchronous primary lesions with additional metastatic hepatic metastatic disease, and MRI of the brain shows right posterior pterygopalatine fossa concerning for metastasis. A CT abd/pelvis concerning for primary Recal carcinoma, CEA is elevated. She states she has had intermittent rectal bleeding x3 months, new onset constipation x3 weeks. Unintentional weight loss of 35 lb in 1.5 months, and hematuria x3 months. She states she has never had a colonoscopy, and denies family history fo colon cancer/. Social history she states 5 cigarettes/day x 10 years however she quit earlier this year, she denies drug use (we have drug use), or alcohol use. Discussed plan for liver biopsy tomorrow we will plan to start preparations after liver biopsy and proceed with colonoscopy scheduled for 04/07/2019. Review of Systems: A 12 system, review was conducted and is negative except as noted in the HPI or here. Past Medical History Medications Current Medications IV Flush (NS 3 ml) 3 ml PER PROTOCOL IV ; Start 04/04/19 at 05:30 Acetaminophen (Tylenol Tab) 650 mg Q6H PRN PO .PAIN 1-3 OR TEMP Last administered on 04/04/19at 10:24; Admin Dose 650 MG; Start 04/04/19 at 05:30 Heparin Sodium (Porcine) (Heparin (5000 Units/1ml)) 5,000 unit Q12 SC Last administered on 04/05/19at 12:58; Admin Dose 5,000 UNIT; Start 04/04/19 at 09:00 Albuterol/ Ipratropium (Duoneb) 3 ml Q2H RESP THERAPY PRN HHN SHORTNESS OF BREATH; Start 04/04/19 at 05:30 Levothyroxine Sodium (Synthroid) 50 mcg DAILY@06 PO Last administered on 04/05/19 06:08; Admin Dose 50 MCG; Start 04/04/19 at 08:30 Levofloxacin/ Dextrose 100 ml @ 100 mls/hr Q24H IVPB Last administered on 04/05/19at 08:48; Admin Dose 100 MLS/HR; Start 04/04/19 at 08:30 Morphine Sulfate (morphine) 2 mg Q4H PRN IV SEVERE PAIN LEVEL 7-10 Last administered on 04/05/19at 09:55; Admin Dose 2 MG; Start 04/04/19 at 13:00 Ondansetron HCl (Zofran Inj) 4 mg Q6H PRN IV NAUSEA AND/OR VOMITING; Start 04/04/19 at 13:00 Trazodone HCl (Desyrel) 25 mg HS PO Last administered on 04/04/19at 22:24; Admin Dose 25 MG; Start 04/04/19 at 22:30 Allergies: Coded Allergies: Penicillins (Verified Allergy, Unknown, 04/03/19) Social History Alcohol Use: none Smoking Status: Unknown if ever smoked Drug Use: none Exam/Review of Systems Exam Vitals Vital Signs Date Temp Pulse Resp B/P (MAP) Pulse Ox O2 O2 Flow FiO2 Time Delivery Rate 04/05/19 97.5 98 16 106/65 99 14:50 (79) 04/04/19 Room Air 03:30 Intake and Output 04/04/19 04/04/19 04/05/19 1515:00 23:00 07:00 IntakeIntake Total 1020 ml 840 ml OutputOutput Total 350 ml 450 ml 900 ml BalanceBalance 670 ml 390 ml -900 ml Exam PHYSICAL EXAMINATION: GENERAL: Well developed, well nourished, alert & oriented SKIN: No lesions, no stigmata chronic liver disease, no evidence of bleeding diathesis HEAD: Normocephalic, atraumatic, no tenderness. EYES: Pupils equal reactive to light and accommodation, right sided facial numbness, amblyopia OD EARS/NOSE AND THROAT: Ears normal, nose normal. NECK: Supple, no masses CHEST: Inspection within normal limits. CARDIOVASCULAR: Heart: Regular rate and rhythm RESPIRATORY: Lungs clear to auscultation and percussion, no wheezing, no rubs GASTROINTESTINAL AND LIVER: Abdomen: Soft, non tenderness, non-distended, no hernias, no masses, no organomegaly, no ascites, no guarding, no rebound tenderness, normoactive bowel sounds. Rectal: Deferred. EXTREMITIES: No cyanosis, clubbing or edema. Results Result Diagram: 04/05/19 0454 04/05/19 0454 Results 24hrs Laboratory Tests Test 04/05/19 04:51 04/05/19 04:54 Carcinoembryonic Antigen 346.0 H White Blood Count 10.7 Red Blood Count 4.18 L Hemoglobin 10.9 L Hematocrit 34.3 L Mean Corpuscular Volume 82.1 Mean Corpuscular Hemoglobin 26.1 L Mean Corpuscular Hemoglobin Concent 31.8 L Red Cell Distribution Width 16.1 H Platelet Count 422 H Mean Platelet Volume 9.7 Immature Granulocytes % 0.700 H Neutrophils % 73.8 Lymphocytes % 14.9 L Monocytes % 8.2 Eosinophils % 1.7 Basophils % 0.7 Nucleated Red Blood Cells % 0.0 Immature Granulocytes # 0.080 H Neutrophils # 7.9 H Lymphocytes # 1.6 Monocytes # 0.9 Eosinophils # 0.2 Basophils # 0.1 Nucleated Red Blood Cells # 0.0 Prothrombin Time 13.3 Prothrombin Time Ratio 1.0 INR International Normalized Ratio 1.00 Activated Partial Thromboplast Time 38.5 H Sodium Level 137 Potassium Level 3.9 Chloride Level 105 Carbon Dioxide Level 27 Anion Gap 5 Blood Urea Nitrogen 14 # Creatinine 0.77 Est Glomerular Filtrat Rate mL/min > 60 Glucose Level 101 Hemoglobin A1c 5.4 Calcium Level 9.0 Phosphorus Level 3.0 Magnesium Level 2.0 Total Bilirubin 0.2 Direct Bilirubin 0.00 Indirect Bilirubin 0.2 Aspartate Amino Transf (AST/SGOT) 55 H Alanine Aminotransferase (ALT/SGPT) 14 Alkaline Phosphatase 217 H Total Protein 6.3 Albumin 3.4 Globulin 2.90 Albumin/Globulin Ratio 1.17 Triglycerides Level 178 H Cholesterol Level 188 LDL Cholesterol, Calculated 104 HDL Cholesterol 48 Cholesterol/HDL Ratio 3.9 Medications Medication Current Medications IV Flush (NS 3 ml) 3 ml PER PROTOCOL IV ; Start 04/04/19 at 05:30 Acetaminophen (Tylenol Tab) 650 mg Q6H PRN PO .PAIN 1-3 OR TEMP Last administered on 04/04/19 10:24; Admin Dose 650 MG; Start 04/04/19 at 05:30 Heparin Sodium (Porcine) (Heparin (5000 Units/1ml)) 5,000 unit Q12 SC Last administered on 04/05/19 12:58; Admin Dose 5,000 UNIT; Start 04/04/19 at 09:00 Albuterol/ Ipratropium (Duoneb) 3 ml Q2H RESP THERAPY PRN HHN SHORTNESS OF BREATH; Start 04/04/19 at 05:30 Levothyroxine Sodium (Synthroid) 50 mcg DAILY@06 PO Last administered on 04/05/19 06:08; Admin Dose 50 MCG; Start 04/04/19 at 08:30 Levofloxacin/ Dextrose 100 ml @ 100 mls/hr Q24H IVPB Last administered on 04/05/19 08:48; Admin Dose 100 MLS/HR; Start 04/04/19 at 08:30 Morphine Sulfate (morphine) 2 mg Q4H PRN IV SEVERE PAIN LEVEL 7-10 Last administered on 04/05/19 09:55; Admin Dose 2 MG; Start 04/04/19 at 13:00 Ondansetron HCl (Zofran Inj) 4 mg Q6H PRN IV NAUSEA AND/OR VOMITING; Start 04/04/19 at 13:00 Trazodone HCl (Desyrel) 25 mg HS PO Last administered on 04/04/19 22:24; Admin Dose 25 MG; Start 04/04/19 at 22:30 DANIELLA BOWER April 05, 2019 15:58
[2019-04-05 19:31] VITALS: BP 130/62; PULSE 79; RESP 18
[2019-04-05] MEDS ORDERED: traZODone 50 MG TAB PO SCH (21:00)
[2019-04-05] MEDS: traZODone 50 MG TAB PO SCH (23:16)
[2019-04-06 01:34] VITALS: BP 116/64; PULSE 77; RESP 16
[2019-04-06] MEDS: LEVOTHYROXINE 50 MCG TAB PO SCH (05:54)
[2019-04-06] MEDS: LEVOFLOXACIN 500MG/D5W (PMX) 100 ML IVPB SCH (08:05)
[2019-04-06 08:14] VITALS: BP 133/65; PULSE 77; RESP 18
[2019-04-06] MEDS: morphine 2 MG INJ IV PRN (08:31)
--- NOTE | 2019-04-06 09:29 | CONS ---
Assessment/Plan Assessment/Plan Assessment/Plan (Daily) Assessment and recommendations; 1. Patient admitted with right facial weakness with further work-up revealing what appears to be extensive metastatic disease. Possibly primary liver with metastasis. 2. Cerebral metastasis as well. 3. COPD. 4. Recent weight loss. Continue current supportive care. Patient to undergo lung biopsy today. Consultation Date/Type/Reason Admit Date/Time April 04, 2019 at 02:21 Initial Consult Date 04/05/19 Type of Consult Pulmonary Patient is a 58-year-old lady who came into the hospital with right facial numbness. Upon evaluation CT of the head was done which is essentially unremarkable. However x-ray showing left lower lobe lung mass confirmed by CT imaging of the chest showing bilateral pulmonary masses with extensive hepatic lesions which are consistent with malignancy. Patient also been reporting weight loss over the last few weeks. Past medical history; 1. History of pulmonary hypertension 2. CAD status post PTCA in the past. 3. History of hypothyroidism. 4. Possibly COPD. Medications; reviewed. Allergies; penicillin. Social history; prior history of smoking. Family history; noncontributory. Occupational history; noncontributory. Review of systems; denies any headache, seizures. Any visual changes. Denies any dysphagia, chest pain, complains of scant cough without any hemoptysis. Denies any wheezing. Denies any abdominal pain, nausea vomiting melena or hematochezia. Patient did have recent episode of UTI. Complains of weight loss. Denies any skin lesions or any joint symptoms. General exam; elderly woman, awake alert, currently no distress. Requesting Provider: JAYLON CASTELAN Date/Time of Note DATE: 04/06/19 TIME: 09:27 24 HR Interval Summary Free Text/Dictation Patient condition stable. Patient complains of right heel numbness. Denies any chest pain, shortness of breath, wheezing. General exam; elderly female, awake alert, currently in no distress. Exam/Review of Systems Exam Vitals Vital Signs Date Temp Pulse Resp B/P (MAP) Pulse Ox O2 O2 Flow FiO2 Time Delivery Rate 04/06/19 98.1 77 18 133/65 100 Room Air 08:14 (87) Intake and Output 04/05/19 04/05/19 04/06/19 1515:00 23:00 07:00 IntakeIntake Total 100 ml 480 ml OutputOutput Total 1000 ml BalanceBalance 100 ml 480 ml -1000 ml Exam H EENT exam; supple neck, no JVD. No lymphadenopathy. Midline trachea. No thyromegaly. Patient has fair dentition. Chest exam; diminished but clear breath sounds. S1-S2 audible, no murmurs. Regular rhythm. Abdomen exam; soft, no organomegaly. Nontender. Bowel sounds audible. Extremity exam; peripheral edema clubbing. [employer] exam; no focal deficit. Results Result Diagram: 04/05/19 0454 04/05/19 0454 Medications Medication Current Medications IV Flush (NS 3 ml) 3 ml PER PROTOCOL IV ; Start 04/04/19 at 05:30 Acetaminophen (Tylenol Tab) 650 mg Q6H PRN PO .PAIN 1-3 OR TEMP Last administered on 04/04/19at 10:24; Admin Dose 650 MG; Start 04/04/19 at 05:30 Heparin Sodium (Porcine) (Heparin (5000 Units/1ml)) 5,000 unit Q12 SC Last administered on 04/05/19at 12:58; Admin Dose 5,000 UNIT; Start 04/04/19 at 09:00; Status Hold Albuterol/ Ipratropium (Duoneb) 3 ml Q2H RESP THERAPY PRN HHN SHORTNESS OF BREATH; Start 04/04/19 at 05:30 Levothyroxine Sodium (Synthroid) 50 mcg DAILY@06 PO Last administered on 04/05/19 06:08; Admin Dose 50 MCG; Start 04/04/19 at 08:30 Levofloxacin/ Dextrose 100 ml @ 100 mls/hr Q24H IVPB Last administered on 04/06/19 08:05; Admin Dose 100 MLS/HR; Start 04/04/19 at 08:30 Morphine Sulfate (morphine) 2 mg Q4H PRN IV SEVERE PAIN LEVEL 7-10 Last administered on 04/06/19 08:31; Admin Dose 2 MG; Start 04/04/19 at 13:00 Ondansetron HCl (Zofran Inj) 4 mg Q6H PRN IV NAUSEA AND/OR VOMITING; Start 04/04/19 at 13:00 Trazodone HCl (Desyrel) 25 mg HS PO Last administered on 04/05/19at 23:16; Admin Dose 25 MG; Start 04/04/19 at 22:30 DONATO PAEZ April 06, 2019 09:29
[2019-04-06] MEDS ORDERED: DEXAMETHASONE 10 MG/ML 1 ML INJ IV SCH (10:00)
[2019-04-06] MEDS ORDERED: LIDOCAINE 1% (MDV) 20 ML INJ ONE (11:53)
[2019-04-06] MEDS ORDERED: FENTAnyl 50 MCG/ML VIAL ONE (12:14)
--- NOTE | 2019-04-06 12:25 | PN ---
Date/Time of Note Date/Time of Note DATE: 04/06/19 TIME: 12:19 Assessment/Plan VTE Prophylaxis Risk score (from Nsg)>0 risk: 1 SCD applied (from Nsg): Yes Pharmacological prophylaxis: heparin (on hold) Lines/Catheters IV Catheter Type (from Nrsg): Peripheral IV Assessment/Plan Hospital Course Subjective: No new complaints, no change in facial numbness. Headaches mildly improved. We discussed MRI findings. Objective: Constitutional: alert, oriented, frail, no distress Head: atraumatic, normocephalic Neck: non-tender, supple Respiratory: clear to auscultation Cardiovascular: regular rate and rhythm Gastrointestinal: S/ NT / ND / +BS Extremities: no edema, good radial pulses. Cachectic, chronic muscle wasting Assessment and plan: 58-year-old female with multiple comorbidities and off medications for a while who presented with right-sided facial numbness and headaches admitted and managed for the followin. Headaches with right-sided facial numbness and pain likely secondary to or cerebral malignant disease -Brain MRI is positive for metastasis and dural infiltration as well as perineural spread. There is evidence of also lytic bone changes. -Patient also has multiple chronic lacunar infarcts in the left coronary radiata and right thalamus -Patient has been started on steroids for symptom control by hematology oncology 2. Metastatic carcinoma with evidence of metastasis to brain, liver, lungs, and skull, possible primary rectal cancer - CT concern for extensive metastases metastatic possible rectal cancer. Nodules concerning for metastasis noted in the lungs bilaterally, and the liver and concerning mass noted in the rectum concerning for possible primary rectal cancer. Milligrams IV 3. Hypothyroidism with suboptimal control due to medication noncompliance patient has been resumed on -Patient has been resumed on Synthroid 4. E. coli UTI pansensitive, -treated with antibiotics for 5 days 200 mg IV x1 5. History of coronary disease status post PCI with noncompliance Hydrocortisone 6. History of dyslipidemia 7. Hypertension currently with fair control 8. Hypochromic anemia rule out iron deficiency 9. Acute renal insufficiency rule out chronic kidney disease: resolved Disposition: -Patient is planned for lung biopsy today -We will also try to obtain records from [facility] -Planned for colonoscopy and biopsy tomorrow -Overall poor prognosis, will speak with oncology to see if palliative care consultation is indicated Result Diagram: 04/05/19 0454 04/05/19 0454 Exam/Review of Systems Exam Vitals Vital Signs Date Temp Pulse Resp B/P (MAP) Pulse Ox O2 O2 Flow FiO2 Time Delivery Rate 04/06/19 98.1 77 18 133/65 100 Room Air 08:14 (87) Intake and Output 04/05/19 04/05/19 04/06/19 1515:00 23:00 07:00 IntakeIntake Total 100 ml 480 ml OutputOutput Total 1000 ml BalanceBalance 100 ml 480 ml -1000 ml Medications Medication Current Medications IV Flush (NS 3 ml) 3 ml PER PROTOCOL IV ; Start 04/04/19 at 05:30 Acetaminophen (Tylenol Tab) 650 mg Q6H PRN PO .PAIN 1-3 OR TEMP Last administered on 04/04/19at 10:24; Admin Dose 650 MG; Start 04/04/19 at 05:30 Heparin Sodium (Porcine) (Heparin (5000 Units/1ml)) 5,000 unit Q12 SC Last administered on 04/05/19at 12:58; Admin Dose 5,000 UNIT; Start 04/04/19 at 09:00; Status Hold Albuterol/ Ipratropium (Duoneb) 3 ml Q2H RESP THERAPY PRN HHN SHORTNESS OF BREATH; Start 04/04/19 at 05:30 Levothyroxine Sodium (Synthroid) 50 mcg DAILY@06 PO Last administered on 04/05/19at 06:08; Admin Dose 50 MCG; Start 04/04/19 at 08:30 Levofloxacin/ Dextrose 100 ml @ 100 mls/hr Q24H IVPB Last administered on 04/06/19at 08:05; Admin Dose 100 MLS/HR; Start 04/04/19 at 08:30 Morphine Sulfate (morphine) 2 mg Q4H PRN IV SEVERE PAIN LEVEL 7-10 Last administered on 04/06/19at 08:31; Admin Dose 2 MG; Start 04/04/19 at 13:00 Ondansetron HCl (Zofran Inj) 4 mg Q6H PRN IV NAUSEA AND/OR VOMITING; Start 04/04/19 at 13:00 Trazodone HCl (Desyrel) 25 mg HS PO Last administered on 04/05/19at 23:16; Admin Dose 25 MG; Start 04/04/19 at 22:30 Dexamethasone (Decadron) 6 mg Q8 IV ; Start 04/06/19 at 10:00 JAYLON CASTELAN April 06, 2019 12:25
--- NOTE | 2019-04-06 13:29 | PN ---
Date/Time of Note Date/Time of Note DATE: 04/06/19 TIME: 13:27 Assessment/Plan VTE Prophylaxis Risk score (from Nsg)>0 risk: 1 SCD applied (from Nsg): Yes Pharmacological prophylaxis: other (scds) Lines/Catheters IV Catheter Type (from Nrs): Peripheral IV Assessment/Plan Hospital Course Summary Assessment and Plan: Assessment: Metastatic cancer of unclear primary -CT abdomen/pelvis- findings concerning for primary rectal carcinoma -Unintentional weight loss, 35lbs weight loss over 1.5 months -Intermittent Recal bleeding -New onset constipation x3 weeks CAD s/p PCI- 2014, noncompliance History of ME- 2014 Right mastoid effusion Hypothyroidism with suboptimal control due to medication noncompliance History of dyslipidemia Plan: S/p lung bx today Will plan for colonoscopy and biopsy Tomorrow by Dr. Plascencia Endoscopy - risks/benefits/alternatives/indications of procedure and sedation/anesthesia discussed with patient who states understanding and gives informed consent to proceed. Monitor h/h transfuse as needed Patient seen in collaboration with Dr. Brian Subjective: Course reviewed with nursing staff Patient interviewed and examined All labs, imaging and other results reviewed The patient is resting in bed s/p lung biopsy No over night events, discussed plan for colonoscopy tomorrow pt verbalized understanding and agreed PHYSICAL EXAMINATION: GENERAL: Alert & oriented x3 SKIN: No lesions, no stigmata chronic liver disease, no evidence of bleeding diathesis HEAD: Normocephalic, atraumatic, no tenderness. EYES: Pupils equal reactive to light and accommodation, right sided facial numbness, amblyopia OD EARS/NOSE AND THROAT: Ears normal, nose normal. NECK: Supple, no masses CHEST: Inspection within normal limits. CARDIOVASCULAR: Heart: Regular rate and rhythm RESPIRATORY: Lungs clear to auscultation and percussion, no wheezing, no rubs GASTROINTESTINAL AND LIVER: Abdomen: Soft, non tenderness, non-distended, no hernias, no masses, no organomegaly, no ascites, no guarding, no rebound tenderness, normoactive bowel sounds. Rectal: Deferred. EXTREMITIES: No cyanosis, clubbing or edema. Result Diagram: 04/05/19 0454 04/05/19 0454 Exam/Review of Systems Exam Vitals Vital Signs Date Temp Pulse Resp B/P (MAP) Pulse Ox O2 O2 Flow FiO2 Time Delivery Rate 04/06/19 98.1 77 18 133/65 100 Room Air 08:14 (87) Intake and Output 04/05/19 04/05/19 04/06/19 1515:00 23:00 07:00 IntakeIntake Total 100 ml 480 ml OutputOutput Total 1000 ml BalanceBalance 100 ml 480 ml -1000 ml Medications Medication Current Medications IV Flush (NS 3 ml) 3 ml PER PROTOCOL IV ; Start 04/04/19 at 05:30 Acetaminophen (Tylenol Tab) 650 mg Q6H PRN PO .PAIN 1-3 OR TEMP Last administered on 04/04/19 10:24; Admin Dose 650 MG; Start 04/04/19 at 05:30 Heparin Sodium (Porcine) (Heparin (5000 Units/1ml)) 5,000 unit Q12 SC Last administered on 04/05/19 12:58; Admin Dose 5,000 UNIT; Start 04/04/19 at 09:00; Status Hold Albuterol/ Ipratropium (Duoneb) 3 ml Q2H RESP THERAPY PRN HHN SHORTNESS OF BREATH; Start 04/04/19 at 05:30 Levothyroxine Sodium (Synthroid) 50 mcg DAILY@06 PO Last administered on 04/05/19 06:08; Admin Dose 50 MCG; Start 04/04/19 at 08:30 Levofloxacin/ Dextrose 100 ml @ 100 mls/hr Q24H IVPB Last administered on 04/06/19 08:05; Admin Dose 100 MLS/HR; Start 04/04/19 at 08:30 Morphine Sulfate (morphine) 2 mg Q4H PRN IV SEVERE PAIN LEVEL 7-10 Last administered on 04/06/19 08:31; Admin Dose 2 MG; Start 04/04/19 at 13:00 Ondansetron HCl (Zofran Inj) 4 mg Q6H PRN IV NAUSEA AND/OR VOMITING; Start 04/04/19 at 13:00 Trazodone HCl (Desyrel) 25 mg HS PO Last administered on 04/05/19 23:16; Admin Dose 25 MG; Start 04/04/19 at 22:30 Dexamethasone (Decadron) 6 mg Q8 IV ; Start 04/06/19 at 10:00 DANIELLA BOWER April 06, 2019 13:29
--- NOTE | 2019-04-06 13:33 | CONS ---
Assessment/Plan Assessment/Plan Hospital Course (Demo Recall) #Multiple bilateral lung nodules. -Ct reveals Dominant mass is in the left lower lobe. These may all represent metastatic lesions or 1 or more synchronous primary lesions with additional metastatic foci. -pt will need this biopsied. #AMS - Brain MRI demonstrates Enhancing soft tissue mass centered in the right posterior pterygopalatine fossa concerning for metastasis. Abnormal dural thic kening and enhancement along the right middle cranial fossa in keeping with intracranial extension with dural infiltration. Enlarged right foramen ovale with abnormal enhancement concerning for perineural spread. Lytic changes of the right sphenoid bone and lateral pterygoid process, better visualized on the recent head CT. No abnormal soft tissue is identified in the right cavernous sinus or Meckel's cave. -Decadron 6mg po q 6 hours started #Right mastoid effusion: IV antibiotic -ENT consult per clinical course #hypothyroidism: -on Synthroid # History of CAD with stent: -continue meds per primary team, Consultation Date/Type/Reason Admit Date/Time April 04, 2019 at 02:21 Initial Consult Date 04/05/19 Type of Consult oncology Reason for Consultation lung cancer Requesting Provider: JAYLON CASTELAN Date/Time of Note DATE: 04/06/19 TIME: 13:31 24 HR Interval Summary Free Text/Dictation Efren MRI was did demonstrate evidence of brain metastasis Exam/Review of Systems Exam Vitals Vital Signs Date Temp Pulse Resp B/P (MAP) Pulse Ox O2 O2 Flow FiO2 Time Delivery Rate 04/06/19 98.1 77 18 133/65 100 Room Air 08:14 (87) Intake and Output 04/05/19 04/05/19 04/06/19 1414:59 22:59 06:59 IntakeIntake Total 100 ml 480 ml OutputOutput Total 1000 ml BalanceBalance 100 ml 480 ml -1000 ml Constitutional: alert, oriented Psych: anxiety, depression Head: normocephalic Eyes: nl conjunctiva ENMT: nl external ears & nose Neck: supple Respiratory: clear to auscultation Cardiovascular: regular rate and rhythm Gastrointestinal: soft Musculoskeletal: nl extremities to inspection Results Result Diagram: 04/05/19 0454 04/05/19 0454 Medications Medication Current Medications IV Flush (NS 3 ml) 3 ml PER PROTOCOL IV ; Start 04/04/19 at 05:30 Acetaminophen (Tylenol Tab) 650 mg Q6H PRN PO .PAIN 1-3 OR TEMP Last administered on 04/04/19 10:24; Admin Dose 650 MG; Start 04/04/19 at 05:30 Heparin Sodium (Porcine) (Heparin (5000 Units/1ml)) 5,000 unit Q12 SC Last administered on 04/05/19 12:58; Admin Dose 5,000 UNIT; Start 04/04/19 at 09:00; Status Hold Albuterol/ Ipratropium (Duoneb) 3 ml Q2H RESP THERAPY PRN HHN SHORTNESS OF BREATH; Start 04/04/19 at 05:30 Levothyroxine Sodium (Synthroid) 50 mcg DAILY@06 PO Last administered on 04/05/19 06:08; Admin Dose 50 MCG; Start 04/04/19 at 08:30 Levofloxacin/ Dextrose 100 ml @ 100 mls/hr Q24H IVPB Last administered on 04/06/19 08:05; Admin Dose 100 MLS/HR; Start 04/04/19 at 08:30 Morphine Sulfate (morphine) 2 mg Q4H PRN IV SEVERE PAIN LEVEL 7-10 Last administered on 04/06/19 08:31; Admin Dose 2 MG; Start 04/04/19 at 13:00 Ondansetron HCl (Zofran Inj) 4 mg Q6H PRN IV NAUSEA AND/OR VOMITING; Start 04/04/19 at 13:00 Trazodone HCl (Desyrel) 25 mg HS PO Last administered on 04/05/19at 23:16; Admin Dose 25 MG; Start 04/04/19 at 22:30 Dexamethasone (Decadron) 6 mg Q8 IV ; Start 04/06/19 at 10:00 MICHELLE CHRIS M.D. April 06, 2019 13:33
[2019-04-06] MEDS: DEXAMETHASONE 10 MG/ML 1 ML INJ IV SCH ×2 (13:55→16:00)
--- NOTE | 2019-04-06 13:56 | CONS ---
Assessment/Plan Assessment/Plan Hospital Course 58 yo F with multiple comorbidities who presents for evaluation of weight loss, malaise, and other sx. CT C/A/P was notable for lung and liver nodules, likely metastatic lesions. She additionally was noted to have c/o headache and R facial tingling... for which neurology is consulted. MRI brain confirmed a mass centered in the right posterior pterygopalatine fossa concerning for metastasis. P: Add maintenance naproxen (with protonix) for headache ppx Seizure precautions Other pain and medical management per primary Will follow clinically Consultation Date/Type/Reason Admit Date/Time April 04, 2019 at 02:21 Type of Consult Neurology Reason for Consultation headache, R facial paresthesias Requesting Provider: JAYLON CASTELAN Date/Time of Note DATE: 04/06/19 TIME: 13:56 24 HR Interval Summary Free Text/Dictation Continues acute care. Continues to endorse headache today. Exam Vital Signs Vitals Vital Signs Date Temp Pulse Resp B/P (MAP) Pulse Ox O2 O2 Flow FiO2 Time Delivery Rate 04/06/19 98.1 77 18 133/65 100 Room Air 08:14 (87) Intake and Output 04/05/19 04/05/19 04/06/19 1414:59 22:59 06:59 IntakeIntake Total 100 ml 480 ml OutputOutput Total 1000 ml BalanceBalance 100 ml 480 ml -1000 ml Exam PE: Gen Appearance: No Apparent Distress HEENT: Normocephalic Cardiovascular: Regular rate Lungs: Clear bilaterally Abdomen: Soft Extremities: Dry NE: The patient was alert and oriented. Language was normal. Fund of knowledge was normal. Pupils were equal and reactive to light. There was no afferent pupillary defect. Eyes were dysconjugate. Visual simms were normal. Funduscopic examination was limited. Extra-ocular movements were full. Ptosis was absent. There was no nystagmus. Facial sensation was diminished on the R. Face was symmetric with normal strength. Hearing was intact. Palate movements were normal. Neck strength was normal. There was normal tongue bulk and speed of movement. Tone was normal. Muscle bulk was normal. I did not see fasciculations. Arms and legs were strong. Vibration sensation was normal. Temperature and pinprick sensation was normal. Rapid alternating movements were normal. There was no dysmetria. There was no intention tremor. Gait was deferred due to bedrest. Arm and leg reflexes were 2+ and symmetric. Wu's sign was absent. Plantar responses were flexor. VIELKA STONE NP April 06, 2019 13:56 RAISA CANNON April 07, 2019 06:42
[2019-04-06 14:00] VITALS: BP 122/67; PULSE 73; RESP 18
[2019-04-06] MEDS ORDERED: BISACODYL (EC) 5 MG TAB PO ONE (14:00)
[2019-04-06] MEDS ORDERED: NAPROXEN 250 MG TAB PO SCH (14:30)
[2019-04-06] MEDS ORDERED: LEVO500T10 PO (15:38)
[2019-04-06] MEDS ORDERED: traZODone PO (15:38)
[2019-04-06] MEDS ORDERED: [UNRECOGNIZED DRUG - CODE] IV (15:38)
[2019-04-06] MEDS ORDERED: PANT40TA4 PO (15:38)
[2019-04-06] MEDS ORDERED: IPRA3AMP29 HHN (15:38)
[2019-04-06] MEDS ORDERED: LEVO50TA7 PO (15:38)
--- NOTE | 2019-04-06 15:42 | EN ---
Date/Time of Note Date/Time of Note DATE: 04/06/19 TIME: 15:40 Event Note Medicine Medicine Event Note 1. Patient has small pneumothorax post lung biopsy. Initial chest x-ray also showing a small postbiopsy hemorrhage. Repeat chest x-ray is planned, follow-up findings. Patient reviewed, she is clinically stable. Bilateral diminished air entry, but no crackles or wheezes. Patient stable on room air. 2. Per case management, there is a possibility patient may be transferred to [facility], medication reconciliation done. Continued care per physician at [facility] if indeed she is transferred. She is stable for transfer. . JAYLON CASTELAN. April 06, 2019 15:42
[2019-04-06] MEDS ORDERED: MAGNESIUM CITRATE 300 ML BTL PO ONE (17:30)
[2019-04-06] MEDS ORDERED: POLYETHYLENE GLYCOL 3350 119 GM POWDER PO ONE (18:30)
[2019-04-06 19:43] VITALS: BP 141/72; PULSE 85; RESP 18
[2019-04-07] MEDS ORDERED: PANTOPRAZOLE (EC) 40 MG TAB PO SCH (06:00)
[2019-04-07] MEDS ORDERED: POLYETHYLENE GLYCOL 3350 119 GM POWDER PO ONE (06:00)
[2019-04-07] MEDS ORDERED: BISACODYL (EC) 5 MG TAB PO ONE (08:00)
--- NOTE | 2019-04-09 01:07 | QN ---
Documentation Comment Discharge Summary Admission/Discharge Info Admit Date/Time April 04, 2019 at 02:21 Discharge Date/Time Discharge Diagnosis 58-year-old female with multiple comorbidities and off medications for a while who presented with right-sided facial numbness and headaches admitted and managed for the followin. Headaches with right-sided facial numbness and pain 2/[address] concern for extensive metastases from possible rectal cancer. Nodules concerning for metastasis noted in the lungs bilaterally, and the liver and concerning mass noted in the rectum concerning for possible primary rectal cancer. 3. Right mastoid effusion 4. Hypothyroidism with suboptimal control due to medication noncompliance 5. History of coronary disease status post PCI with noncompliance 6. History of dyslipidemia 7. Hypertension currently with fair control 8. Hypochromic anemia rule out iron deficiency 9. Acute renal insufficiency rule out chronic kidney disease: resolved 10. Status post lung biopsy with complication of small pneumothorax stable on x-ray 11. Ongoing bowel prep for colonoscopy . Patient Condition: Stable Consults Pulmonary: Barber Barrientos MD Oncology: Annie Vazquez MD . Procedures See hospital course . Hospital Course Transfer summary 58-year-old female with a past medical history of hypertension, hypothyroidism, anxiety, dyslipidemia, coronary artery disease status post stent placement and noncompliance to therapy who had presented to the emergency room complaining of right-sided facial pain and tingling for the last 1 week with weight loss, generalized weakness, headaches and shortness of breath. Per the patient she had recently had a hematuria 2 weeks ago was diagnosed with a UTI by her primary care doctor. For insurance reasons, the patient has been off any kind of medication for over a month. A chest x-ray that was done in the emergency room was concerning for a nodule at 3.5 cm opacity from the left lung base that was consented for primary neoplasm versus metastatic disease based on this, a CT scan of the chest was ordered but prior to that she underwent a CT scan of the brain that showed nonspecific left frontal white matter hypodensity likely chronic ischemic changes and right mastoid effusion. Chest CT that was ordered without contrast also of the abdomen and pelvis showed concern for primary rectal carcinoma with lung and liver metastasis. The left lower lobe dominant lung mass as well as several liver masses are amenable to CT-guided biopsy if indicated. She also had a CT of the chest with intravenous contrast that did show same dominant mass in the left lower lobe lobe which I suspect suspicious of metastatic lesions as well as partially imaged extensive hepatic metastatic dis ease. Patient also has a known history of hypothyroidism but has been noncompliant with her medication and she underwent a screening thyroid ultrasound that also came back showing asymmetrically enlarged right thyroid lobe with multiple ill- defined thyroid nodules likely representing a unilateral goiter. Per the radiologist none of the nodules meet ultrasound criteria for biopsy. She was resumed on low-dose Synthroid and has been tolerating this therapy. Screening labs including carcinoembryonic antigen was elevated at 346, her TSH was elevated at 16 and a urine was highly suspicious of a urinary tract infection and also positive for yeast as well. At this time the patient has been seen by both oncology as well as pulmonology. patient's original presenting complaint was right facial numbness and this is concerning for possible cerebral malignant involvement. At this time brain MRI has been taken by report is pending. As patient is a [facility] member, it may be better off if her further work-up is done at that location. The patient needs possible neurology as well as gastroenterology intervention at this time as well. She does complain of intermittent constipation alternating with diarrhea. She has been requiring the use of stool softeners on and off. Gastroenterology consultation was obtained and patient was being prepped for colonoscopy. She also underwent CT-guided biopsy of lung nodule and developed a small pneumothorax in complication. She is however asymptomatic from the pneumothorax and follow-up x-ray at the 1 hour edie was unremarkable. The patient is currently in the middle of GI prep for colonoscopy. At this time she has a bed at [facility], she is stable for transfer for continued work-up there. . JAYLON CASTELAN. Apr 09, 2019 01:07
== END 2019-04-06 19:55 | disposition short-term general hospital (02) | DRG 180 ==
LOC: E/R 23:10 → 2NE 04-04 02:21
PROVIDERS: ADMIT Internal Medicine; ATTEND Family Medicine
PROC: 0BBG3ZX Excision of Left Upper Lung Lobe, Percutaneous Approach, Diagnostic (ICD-10-PCS; principal; 2019-04-06)
DX: C78.00 Secondary malignant neoplasm of unspecified lung (principal); E43 Unspecified severe protein-calorie malnutrition; C79.31 Secondary malignant neoplasm of brain; N39.0 Urinary tract infection, site not specified; N17.9 Acute kidney failure, unspecified; C20 Malignant neoplasm of rectum; C78.7 Secondary malignant neoplasm of liver and intrahepatic bile duct; Z68.1 Body mass index [BMI] 19.9 or less, adult; B96.20 Unspecified Escherichia coli [E. coli] as the cause of diseases classified elsewhere; D50.9 Iron deficiency anemia, unspecified; E78.5 Hyperlipidemia, unspecified; E03.9 Hypothyroidism, unspecified; H74.8X1 Other specified disorders of right middle ear and mastoid; G89.3 Neoplasm related pain (acute) (chronic); R51 Headache; I10 Essential (primary) hypertension; I25.10 Atherosclerotic heart disease of native coronary artery without angina pectoris; J44.9 Chronic obstructive pulmonary disease, unspecified; R20.0 Anesthesia of skin; R41.82 Altered mental status, unspecified; Z91.14 Patient's other noncompliance with medication regimen; I25.2 Old myocardial infarction; Z95.5 Presence of coronary angioplasty implant and graft; Z87.891 Personal history of nicotine dependence
CPT/HCPCS: 36415; 70450; 70552; 71045; 71250; 71260; 74176; 76536; 77012; 80048; 80053; 80061; 81001; 81003; 82378; 82962; 83036; 83735; 83880; 84100; 84439; 84443; 84484; 85025; 85610; 85730; 87086; 88307; 88313; 93005; 96360; 96361; J0696; J1100; J1644; J1885; J1956; J2270; J2405; J2765; J3010; J7040; Q9967

== ENCOUNTER 2019-05-02 23:29 | Emergency (ER) | payer MEDICARE, OTHER ==
[~2019-05-02] VITALS: Ht 172.7 cm; Wt 50.0 kg
[~2019-05-02 23:29] MED LIST: CA CHLORIDE 10% 10 ML SYRINGE ONE; EPINEPHrine 10 MCG/1ml (10 ML SYG) IV ONE; IPRA3AMP29 HHN; LEVO500T10 PO; LEVO50TA7 PO; PANT40TA4 PO; SUCCINYLCHOLINE CHLORIDE 100 MG/5 ML SYG IV ONE; [UNRECOGNIZED DRUG - CODE] IV; traZODone PO
[2019-05-02 23:30] VITALS: PULSE 100; RESP 8; Ht 172.7 cm; Wt 50.0 kg
--- NOTE | 2019-05-03 00:35 | ERD ---
ER Documentation Chief Complaint Chief Complaint decreasing LOC and not eating x 3 days, became nonresponsive on scene HPI Is a 4-year-old female brought in by rescue for decreased loss conscious 90 for 3 days. Apparently she became nonresponsive on scene the paramedics upon arrival, patient had no pulse. ACLS started immediately upon arrival. ROS All systems reviewed and are negative except as per history of present illness. Medications Home Meds Active Scripts Ipratropium-Albuterol (Ipratropium-Albuterol) 0.5-3 Mg/3 Ml Ampul.neb, 3 ML HHN Q2H RESP THERAPY PRN for SHORTNESS OF BREATH for 1 Day Prov:JAYLON CASTELAN . 04/06/19 Pantoprazole* (Pantoprazole*) 40 Mg Tablet.dr, 40 MG PO DAILY@06 for 1 Day Prov:JAYLON CASTELAN . 04/06/19 Levothyroxine Sodium* (Levothyroxine Sodium*) 50 Mcg Tablet, 50 MCG PO DAILY@06 for 1 Day, TAB Prov:JAYLON CASTELAN . 04/06/19 Dexamethasone (Decadron) 10 Mg/Ml Soln, 6 MG IV Q8 for 1 Day Prov:JAYLON CASTELAN . 04/06/19 [traZODone] 50 MG TAB No Conflict Check, 25 MG PO HS for 1 Day Prov:JAYLON CASTELAN . 04/06/19 Levofloxacin* (Levofloxacin*) 500 Mg Tablet, 500 MG PO DAILY for 3 Days, #3 TAB Prov:JAYLON CASTELAN. 04/06/19 Allergies Allergies: Coded Allergies: Penicillins (Verified Allergy, Unknown, 04/03/19) PMhx/Soc History of Surgery: Yes (OVARIAN CYST REMOVAL (20 YRS. AGO)) Anesthesia Reaction: No Hx Neurological Disorder: Yes (NEUROPATHY) Hx Respiratory Disorders: No Hx Cardiac Disorders: Yes (HIGH CHOLESTEROL, [place] (2014) WITH 2 STENTS, HTN) Hx Psychiatric Problems: Yes (ANXIETY, DEPRESSION) Hx Miscellaneous Medical Probl: No Hx Alcohol Use: No Hx Substance Use: No Hx Tobacco Use: No (QUITE 2019 (EARLIER THIS YEAR)) Physical Exam Vitals Vital Signs Date Temp Pulse Resp B/P (MAP) Pulse Ox O2 O2 Flow FiO2 Time Delivery Rate 05/02/19 100 8 23:30 Physical Exam Const: Obtunded Head: Atraumatic Eyes: Pinpoint and nonreactive ENT: Normal External Ears, Nose and Mouth. Neck: Full range of motion. No meningismus. Resp: Clear to auscultation bilaterally Cardio: No heartbeat detected Abd: Soft, non tender, non distended. Normal bowel sounds Skin: No petechiae or rashes Back: No midline or flank tenderness Ext: No cyanosis, or edema Neur: Obtunded Psych: Deferred Procedures/MDM Emergency department course: Patient immediately had ACLS initiated. Patient was intubated. Despite several rounds of ACLS and several defibrillations, patient was unable to be revived. [facility] made aware as the patient is a [facility] patient. Family notified to come to hospital, however not given information of over the phone. Endotracheal Intubation by me: Pre assessment performed. See preceding note for details. Pre-oxygenation performed with 100% oxygen RSI: Performed w/o complication or hypoxic events. Medications as ordered. Blade: [Mac 4] ET Tube: 7.5 cm Depth: 23 cm at the lip Intubation confirmed by colorimetric CO2, equal breath sounds, quiet over the stomach. Chest X-ray 1V Interpreted by me: 2 cm above the arcelia ET tube. Normal soft tissue, No pneumothorax. Critical Care: Time: 45 minutes, independent of any separately billable procedural time Treatments/Evaluations: Close monitoring and treatment of unstable vital signs, cardiorespiratory, and neurologic status, while maintaining tight balance of fluid, respiratory, and cardiac interventions. Departure Diagnosis: Primary Impression: Cardiopulmonary arrest Condition: Critical MERLE KING May 03, 2019 00:35
== END 2019-05-03 02:42 | disposition expired ==
LOC: E/R 23:29
DX: I46.9 Cardiac arrest, cause unspecified (principal); I10 Essential (primary) hypertension; Z98.61 Coronary angioplasty status
CPT/HCPCS: 31500; 92950; 99291; J0171